=== PATIENT | female | born 1940 | race Caucasian/White ===

== ENCOUNTER → 2019-12-31 13:29 | Outpatient (CLI) | payer OTHER, SELFPAY ==
--- NOTE | ~2019-12-31 | MM_ITS ---
EXAMINATION: MM screening [facility] BI w ollie HISTORY: Screening mammogram TECHNIQUE: Craniocaudal and mediolateral oblique 3-D tomosynthesis images were obtained and synthetic 2-D images were generated. CAD analysis was submitted and interpreted. COMPARISON: 12/14/2018, 11/14/2017, 11/03/2016 BREAST PARENCHYMAL COMPOSITION: The breasts are heterogeneously dense, which may obscure small masses . FINDINGS: RIGHT BREAST: There is no evidence of suspicious mass, calcification, or architectural distortion to suggest malignancy. There has been no significant interval change. LEFT BREAST: There is a possible mass in the posterior third of the outer breast best appreciated 9 c m from the nipple on the craniocaudal view.. IMPRESSION: 1. Possible left breast mass. 2. Additional mammographic views and possible breast ultrasound are recommended. BI-RADS Category 0: Incomplete: Needs additional imaging evaluation. Reviewed, dictated and finalized at location A. REPAIRER IMPRESSION: 1. Possible left breast mass. 2. Additional mammographic views and possible breast ultrasound are recommended . BI-RADS Category 0: Incomplete: Needs additional imaging evaluation.
== END ==
PROVIDERS: PCP Family Medicine; Visit Provider Obstetrics & Gynecology
DX: Z12.31 Encounter for screening mammogram for malignant neoplasm of breast (principal); R92.8 Other abnormal and inconclusive findings on diagnostic imaging of breast
CPT/HCPCS: 77063; 77067

== ENCOUNTER → 2020-01-20 09:16 | Outpatient (CLI) | payer OTHER, SELFPAY ==
--- NOTE | ~2020-01-20 | MMUS_ITS ---
EXAMINATION: MM diagnostic mammo unilat LT, US breast LT limited HISTORY: Follow-up left breast asymmetry TECHNIQUE: Additional 3-D tomosynthesis images of the left breast were performed and synthetic 2-D im ages were generated. CAD analysis was submitted and interpreted. High resolution left breast ultrasou nd was performed. COMPARISON: Comparison to multiple prior studies sequentially, with oldest reviewed study dated 06/2016. FINDINGS: MAMMOGRAPHIC FINDINGS: The breasts are heterogenously dense, which may obscure small masses. There is persistent focal asymm etry in the upper outer quadrant of the left breast, although a discrete mass is not identified. No s uspicious calcifications or architectural distortion. ULTRASOUND: At 12-1:00, 5 cm from the nipple, there is an irregular shaped hypoechoic mass measuring 7 x 4 mm wit h irregular margins. No internal vascularity or significant posterior features. IMPRESSION: 1. Irregular shaped 7 mm mass at 12-1:00, 5 cm from the nipple. 2. Recommend ultrasound-guided left breast biopsy. BI-RADS category 4, suspicious findings. Reviewed, dictated and finalized at location A. HALMIC AIDE IMPRESSION: 1. Irregular shaped 7 mm mass at 12-1:00, 5 cm from the nipple. 2. Recommend ultrasound-guided left breast biopsy. BI-RADS category 4, suspicious findings.
== END ==
PROVIDERS: PCP Family Medicine; Visit Provider Obstetrics & Gynecology
DX: N63.0 Unspecified lump in unspecified breast (principal); R92.8 Other abnormal and inconclusive findings on diagnostic imaging of breast
CPT/HCPCS: 76642; 77065

== ENCOUNTER 2022-02-16 00:55 | Day surgery (SDC) | payer OTHER, SELFPAY ==
[2022-02-03 13:17] VITALS: BMI 29.4
--- NOTE | 2022-02-15 17:11 | WPDGICN ---
Assessment and Plan Assessment and plan (1) Colon cancer screening: Code(s): Z12.11 - Encounter for screening for malignant neoplasm of colon Status: Acute Assessment and Plan: Colonoscopy with possible biopsy or polypectomy or cautery or injection of substances. (2) Polyp, colonic: Code(s): K63.5 - Polyp of colon Status: Acute GI Consult Note Consult date/time: 02/15/22 17:11 HPI: Yenni Mattson is a 81 year old female referred for investigation because of a prior removal of a tubular adenoma. That was in 2018 she has had no recent change in bowel habits or blood in her stools . Review of Systems Review of Systems: All systems reviewed & are unremarkable except as noted in HPI and below PMFSH Past Medical History Medical History Allergic rhinitis Mixed hyperlipidemia Osteoporosis Family History Family History Grandparent Diabetes mellitus Hypertension Family history of cardiovascular disease Father Family history of glaucoma Family history of malignant melanoma Mother Hypertension Social History Social History Smoking status: Never smoker Second hand tobacco smoke exposure: No Alcohol intake: never Substance use type: does not use Living arrangements: with family Spiritual care concerns: No Meds Home Medications and Allergies Home Medications Medication Instructions Recorded Confirmed Type atorvastatin 10 mg tablet 10 mg PO DAILY #90 tablet 10/28/21 02/03/22 Rx fluticasone propionate 50 2 spray INTRANASAL DAILY #3 device 10/28/21 02/03/22 Rx mcg/actuation nasal spray,suspension calcium carbonate-vitamin D3 1 tablet PO DAILY 02/03/22 02/03/22 History multivit with min-folic acid 1 tablet PO DAILY 02/03/22 02/03/22 History Allergies Allergy/AdvReac Type Severity Reaction Status Date / Time No Known Allergies Allergy Verified 02/16/22 06:51 Exam Resp: Auscultation: clear to auscultation bilaterally Cardio: Rate: regular rate Rhythm: regular rhythm GI: GI Palp: Yes Soft to palpation and No Tenderness to palpation present (GI)
[2022-02-16 06:52] VITALS: BP 142/80; PULSE 82; RESP 20; TEMP 36.3; O2SAT 98; BMI 28.8
[2022-02-16] MEDS: LACTATED RINGERS 1,000 ML 150 ML IV CONT (07:04)
--- NOTE | 2022-02-16 07:06 | WPDANESEPPF ---
Anes - Initial Pre Proc Eval Procedure: Operation Date: 02/16/22 08:00 Proposed Procedures p Screening Colonoscopy - Min Schreiber MD Date/Time: 02/16/22 07:06 Surgeon: Min Schreiber MD Pre Op Diagnosis: hx of colon polyps Patient Data Age: 81 Gender: F Height: 1.57 m Weight: 71.4 kg Last Vital Signs Temp 36.3 C L 02/16/22 06:52 Pulse 82 02/16/22 06:52 Resp 20 02/16/22 06:52 BP 142/80 H 02/16/22 06:52 Pulse Ox 98 02/16/22 06:52 Allergies Allergy/AdvReac Type Severity Reaction Status Date / Time No Known Allergies Allergy Verified 02/16/22 06:51 Home Medications Medication Instructions Recorded Confirmed Type atorvastatin 10 mg tablet 10 mg PO DAILY #90 tablet 10/28/21 02/03/22 Rx fluticasone propionate 50 2 spray INTRANASAL DAILY #3 device 10/28/21 02/03/22 Rx mcg/actuation nasal spray,suspension calcium carbonate-vitamin D3 [All 1 tablet PO DAILY 02/03/22 02/03/22 History Day Calcium] multivit with min-folic acid 1 tablet PO DAILY 02/03/22 02/03/22 History [Adult One Daily Multivitamin] Patient hx anesthesia problems: none Family hx anesthesia problems: none Results Review: All pre-operative results and documents have been reviewed as part of the pre-operative evaluation. [facility] Past Medical History Medical History Allergic rhinitis Mixed hyperlipidemia Osteoporosis Family History Family History Grandparent Diabetes mellitus Hypertension Family history of cardiovascular disease Father Family history of glaucoma Family history of malignant melanoma Mother Hypertension Social History Social History Smoking status: Never smoker Second hand tobacco smoke exposure: No Alcohol intake: never Substance use type: does not use Living arrangements: with family Spiritual care concerns: No Anes - Eval Final PreProcedure Day of Procedure 02/16/22 07:06 Patient weight: overweight Heart: regular rate and rhythm Lungs: clear to auscultation Airway: Mallampati scale class II Neurological: alert and oriented Last oral intake: >/= 8 hours ASA classification: II Emergent: no Anesthetic plan: proceed Anesthesia type and monitoring: general GIVS and standard monitoring Results Review: All pre-operative results and documents have been reviewed as part of the pre-operative evaluation. Informed Consent: The patient's anesthetic plan and its attendant risks and benefits were discussed with the patient/family/POA. Questions were solicited and answers provided to the satisfaction of the patient/family/POA.
[2022-02-16 08:11] VITALS: BP 133/67; PULSE 78; RESP 20; O2SAT 97
[2022-02-16 08:21] VITALS: BP 107/60; PULSE 68; RESP 18; O2SAT 97
[2022-02-16 08:31] VITALS: BP 144/73; PULSE 64; RESP 20; O2SAT 100
== END 2022-02-16 08:44 | disposition home or self-care (01) ==
PROVIDERS: PCP Family Medicine; Visit Provider Internal Medicine Gastroenterology
PROC: 0DJD8ZZ Inspection of Lower Intestinal Tract, Via Natural or Artificial Opening Endoscopic (ICD-10-PCS; CPT 45378; principal; 2022-02-16 08:00)
DX: Z12.11 Encounter for screening for malignant neoplasm of colon (principal); D12.4 Benign neoplasm of descending colon; E78.2 Mixed hyperlipidemia; M81.0 Age-related osteoporosis without current pathological fracture
CPT/HCPCS: 45385; 88305; J2704; J7120

== ENCOUNTER → 2022-03-07 11:46 | Outpatient (CLI) | payer OTHER, SELFPAY ==
--- NOTE | ~2022-03-07 | DEXA_ITS ---
Bone Density Report Name: MARIMAR DICKEY Age: 81 Sex: Female Ethnicity: White Date of : 1940 Indication: osteopenia; parental hip fracture; height loss; prior fracture; hysterectomy; postmenopausal Referring Provider: Hodan Fung Study: Bone densitometry was performed. Exam Date: March 07, 2022 Accession number: [id number] Bone Density: Region BMD T-score Z-score Classification AP Spine (L1-L4) 0.821 -2.1 0.6 Osteopenia Femoral Neck (Left) 0.613 -2.1 0.2 Osteopenia Total Hip (Left) 0.776 -1.4 0.7 Osteopenia Femoral Neck (Right) 0.559 -2.6 -0.3 Osteoporosis Total Hip (Right) 0.738 -1.7 0.4 Osteopenia Total Hip Mean 0.757 -1.6 0.6 Osteopenia World Health Organization criteria for BMD impression classify patients as: Normal (T-score at or above -1.0), Osteopenia (T-score between -1.0 and -2.5), or Osteoporosis (T-score at or below -2.5). 10-year Fracture Risk: FRAX not reported because: Some T-score for Spine Total or Hip Total or Femoral Neck at or below -2.5 Previous Exams: Region Exam Age BMD T-score BMD Change BMD Change Date g/cm2 vs Baseline vs Previous AP Spine(L1-L4) 03/07/2022 81 0.821 -2.1 0.030* 0.008 12/14/2018 78 0.812 -2.1 0.022 0.022 11/03/2016 76 0.790 -2.3 Total Hip(Left) 03/07/2022 81 0.776 -1.4 0.029* 0.010 12/14/2018 78 0.766 -1.4 0.019 0.019 11/03/2016 76 0.747 -1.6 Total Hip(Right) 03/07/2022 81 0.738 -1.7 0.002 -0.018 12/14/2018 78 0.756 -1.5 0.020 0.020 11/03/2016 76 0.736 -1.7 *Denotes significance at 95% confidence level, LSC for AP Spine = 0.022 g/cm2, LSC for Total Hip = 0.027 g/cm2 Clinical Information Provided by Patient: Has had a low trauma fracture Parent has had a hip fracture Has used the following medications: Vitamin D, Calcium Has the following medical conditions: Hysterectomy Patient maximum height was 62 Menopause Age: 46 Drinks caffeinated beverages Onset of menses at age 17 Number of children 2 Impression: The patient has established osteoporosis, based on the Right Femoral Neck T-score and the existence of a prior fracture. The patient has risk factors, including: parental hip fracture, previous fracture. No significant bone loss was observed. Discussion: HIGH RISK OF FRACTURE. BONE DENSITY IS UNDESIRABLY LOW AT ONE OR MORE SKELETAL SITES,
== END ==
PROVIDERS: PCP Family Medicine; Visit Provider Physician Assistant
DX: Z78.0 Asymptomatic menopausal state (principal); M85.89 Other specified disorders of bone density and structure, multiple sites; M81.0 Age-related osteoporosis without current pathological fracture
CPT/HCPCS: 77080

== ENCOUNTER → 2023-09-25 11:03 | Outpatient (CLI) | payer OTHER, SELFPAY ==
--- NOTE | ~2023-09-25 | XR_ITS ---
XR foot LT min 3V DATE: 09/25/2023 11:26 INDICATION: Left foot pain TECHNIQUE: 4 views COMPARISON: None FINDINGS: There is diffuse osteopenia. Mild plantar calcaneal enthesopathy. 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 No fracture or dislocation, periosteal reaction or bone destruction. IMPRESSION: Mild plantar calcaneal enthesopathy. Mild to moderate osteoarthritic change at the first metatarsophalangeal joint Reviewed, dictated and finalized at location B.
== END ==
PROVIDERS: PCP Physician Assistant Medical; Visit Provider Physician Assistant Medical
DX: M77.32 Calcaneal spur, left foot (principal); M19.072 Primary osteoarthritis, left ankle and foot
CPT/HCPCS: 73630

== ENCOUNTER 2024-09-17 13:56 | Outpatient (CLI) | payer OTHER, SELFPAY ==
--- NOTE | ~2024-09-17 | MM_ITS ---
EXAMINATION: MM screening [facility] BI w ollie HISTORY: Screening TECHNIQUE: Craniocaudal and mediolateral oblique 3-D tomosynthesis images were obtained and synthetic 2-D images were generated. CAD analysis was submitted and interpreted. COMPARISON: Comparison to multiple prior studies sequentially, with oldest reviewed study dated 02/2020. BREAST PARENCHYMAL COMPOSITION: Dense: The breasts are heterogeneously dense, which may obscure small masses FINDINGS: There is no evidence of suspicious mass, calcification, or architectural distortion to sugg est malignancy in either breast. There has been no suspicious interval change. IMPRESSION: 1. No mammographic evidence of malignancy. 2. Recommend routine screening mammography in one year. BI-RADS Category 1: Negative Reviewed, dictated and finalized at location B.
== END 2024-09-17 13:57 | disposition home or self-care (01) ==
LOC: MICIMG 13:57
PROVIDERS: PCP Family Medicine; Visit Provider Family Medicine
DX: Z12.31 Encounter for screening mammogram for malignant neoplasm of breast (principal)
CPT/HCPCS: 77063; 77067

== ENCOUNTER 2024-12-07 09:35 | Outpatient (CLI) | payer OTHER, SELFPAY ==
--- NOTE | ~2024-12-07 | DEXA_ITS ---
Bone Density Report Name: MARIMAR DICKEY Age: 84 Sex: Female Ethnicity: White Date of : 1940 Indication: postmenopausal; screening for osteoporosis; parental hip fracture; height loss; history of glucocorticoids; hysterectomy; Referring Provider: HALEIGH SIMEON Study: Bone densitometry was performed. Exam Date: December 07, 2024 Accession number: [id number] Bone Density: Region BMD T-score Z-score Classification AP Spine(L1-L4) 0.864 -1.7 1.1 Osteopenia Femoral Neck (Left) 0.578 -2.4 0.0 Osteopenia Total Hip (Left) 0.748 -1.6 0.6 Osteopenia Femoral Neck (Right) 0.571 -2.5 -0.1 Osteoporosis Total Hip (Right) 0.763 -1.5 0.7 Osteopenia Total Hip Mean 0.755 -1.6 0.7 Osteopenia World Health Organization criteria for BMD impression classify patients as: Normal (T-score at or above -1.0), Osteopenia (T-score between -1.0 and -2.5), or Osteoporosis (T-score at or below -2.5). 10-year Fracture Risk: FRAX not reported because: Some T-score for Spine Total or Hip Total or Femoral Neck at or below -2.5 Clinical Information Provided by Patient: Parent has had a hip fracture Has taken Glucocorticoids Has used the following medications: Fosamax (i.e. alendronate), Vitamin D, Calcium Has the following medical conditions: Hysterectomy Patient maximum height was 63 Menopause Age: 42 Drinks caffeinated beverages Onset of menses at age 18 Number of children 2 Impression: The patient has osteoporosis, based on the Right Femoral Neck T-score. The patient has risk factors, including: parental hip fracture, history of glucocorticoid therapy. Discussion: INCREASED RISK OF FRACTURE. BONE DENSITY IS UNDESIRABLY LOW AT ONE OR MORE SKELETAL SITES, CONSISTENT WITH POSTMENOPAUSAL OSTEOPOROSIS. This patient's lowest T-score meets the World Health Organization's (WHO) criteria for osteoporosis at one or more sites (T-score -2.5 or below). In untreated patients, the risk of osteoporotic fracture increases approximately two-fold for each 1.0 SD decrease in T-score. Low bone density is not the only risk factor for fracture; also consider factors such as patient's age, frailty or poor health, risk of falling, risk of injury, previous osteoporotic fracture, family history of osteoporosis, cigarette smoking, low body weight, etc. Not everyone with low bone mineral density has osteoporosis; osteomalacia and other metabolic bone disorders should also be considered. Patients who have osteoporosis should be evaluated for specific diseases and conditions (secondary causes) that may cause or contribute to bone loss. The [place] Association [employer] Clinical Endocrinologists (AACE) and National Osteoporosis Foundation (NOF) recommend pharmacologic intervention for all postmenopausal women whose T-score is in this range. The patient should follow a healthful lifestyle (good nutrition with adequate calcium and vitamin D, and appropriate weight-bearing exercise). Follow-Up: Consider a repeat BMD and Vertebral Fracture Assessment (VFA) exam in 2 years or sooner if medically necessary, to reassess this patient's status. Reported by: REBECA on 12/07/2024 10:16:00 AM. Reviewed, dictated and finalized at location AAissatou DEGROOT
== END 2024-12-07 09:36 | disposition home or self-care (01) ==
PROVIDERS: PCP Family Medicine; Visit Provider Family Medicine
DX: M81.0 Age-related osteoporosis without current pathological fracture (principal); M85.89 Other specified disorders of bone density and structure, multiple sites; Z78.0 Asymptomatic menopausal state
CPT/HCPCS: 77080

== ENCOUNTER 2025-01-31 10:52 | Outpatient (CLI) | payer OTHER, SELFPAY ==
--- NOTE | ~2025-01-31 | XR_ITS ---
3 VIEWS LUMBAR SPINE Ordering provider: Claribel Man PA-C History: . W19.XXXA - Unspecified fall, initial encounter . Comparison: None. FINDINGS: VERTEBRAL BODIES:Compression fracture is seen in L1 which is most likely acute. MRI evaluation advise d. Sclerotic area seen in the sacrum. Follow-up advised. DISK SPACES: Narrowing of the disc L4-L5. SOFT TISSUES: Atherosclerotic changes of the aorta. IMPRESSION: Compression fracture of L1 most likely acute. MRI evaluation advised. Sclerotic area in the left sacrum. Follow-up advised. Reviewed, dictated and finalized at location A. [employer] OPERATIONS SPECIALIST
--- NOTE | ~2025-01-31 | XR_ITS ---
XR hip BI 2V w AP pelvis Ordering provider: Claribel Man PA-C History: . W19.XXXA - Unspecified fall, initial encounter . Comparison: None. FINDINGS: BONES: No acute fracture or dislocation. Sclerotic area seen in the left sacrum. Follow-up advised. HIP JOINT SPACES: Mild to moderate osteoarthritic changes of both hips. SACROILIAC JOINT SPACES/LUMBAR SPINE: The sacroiliac joint spaces are normal. Mild degenerative wilkinson es of the visualized lower lumbar spine. PUBIC SYMPHYSIS: Normal. SOFT TISSUES: Normal. IMPRESSION: No acute osseous abnormality of the bilateral hips and pelvis. Sclerotic lesion seen in the left sacrum most likely benign. Follow-up advised. Reviewed, dictated and finalized at location A. RVISOR MOLD SHOP
== END 2025-01-31 10:53 | disposition home or self-care (01) ==
LOC: MICIMG 10:54
PROVIDERS: PCP Family Medicine; Visit Provider Student in an Organized Health Care Education/Training Program
DX: S32.010A Wedge compression fracture of first lumbar vertebra, initial encounter for closed fracture (principal); M89.8X8 Other specified disorders of bone, other site; W19.XXXA Unspecified fall, initial encounter; X58.XXXA Exposure to other specified factors, initial encounter
CPT/HCPCS: 72100; 73521

== ENCOUNTER 2025-02-03 14:37 | Emergency (ER) | payer OTHER, SELFPAY ==
[2025-02-03] VITALS (13 sets, daily range): BP systolic 145–188; BP diastolic 69–116; PULSE 68–76; RESP 18–20; TEMP 36.3; O2SAT 96–99
--- NOTE | ~2025-02-03 | CT_ITS ---
EXAMINATION: CT abdomen pelvis w con DATE: 02/03/2025 19:05 INDICATION: abd pain, constipation, lumbar spine fracture TECHNIQUE: Computed tomography (CT) of the abdomen and pelvis was performed with 100 mL Omnipaque-350 intravenous contrast. Automated exposure control and iterative reconstruction technique were employe d. The dose-length product was 636.50 mGy-cm. COMPARISON: X-ray lumbar spine 01/31/2025. FINDINGS: Lower thorax: Coronary artery calcifications. Liver: Right lobe hemangioma. Multiple subcentimeter hypodensities that are too small to characterize but most likely represent cysts or hemangiomas. Biliary/Gallbladder: Gallbladder is normal. No bile duct dilation. Pancreas: No mass or duct dilation. Spleen: Normal. Adrenals:No mass. Kidneys: No suspicious mass, obstructing stone, or hydronephrosis. Subcentimeter left renal hypodensi ties, too small to characterize but most likely represent cysts. Small left upper pole AML. GI tract: Mild distal esophageal and gastric wall edema. No small or large bowel dilation. Moderate v olume of intracolonic feces. Appendix not confidently visualized. Mesentery/Peritoneum: No ascites, mass, or free air. Retroperitoneum: No mass. Atherosclerotic calcifications of intra-abdominal arterial vessels. Pelvis: Normal urinary bladder. Absent uterus. Normal bilateral ovaries. Soft Tissues: Small uncomplicated fat-containing of local hernia. Bones: No acute osseous finding. Moderate burst fracture at L1 with 6 mm retropulsion. Left sacral b one island. IMPRESSION: Mild esophagitis/gastritis. Moderate volume of colonic feces. No CT findings of large or small bowel obstruction. Grossly stable moderate L1 burst fracture with 6 mm retropulsion. Reviewed, dictated and finalized at location K. IMPRESSION: Mild esophagitis/gastritis. Moderate volume of colonic feces. No CT findings of large or small bowel obstru ction. Grossly stable moderate L1 burst fracture with 6 mm retropulsion.
--- NOTE | 2025-02-03 14:56 | ED.GENADULT ---
HPI - General Adult General Chief complaint: Unspecified <Jeri Cueto PA-C - Last Filed: 02/04/25 09:29> Stated complaint: Constipation Last BM 01/30-sent by Dr Jewell <Jeri Cueto PA-C - Last Filed: 02/04/25 09:29> Time Seen by Provider: 02/03/25 14:55 <Jeri Cueto PA-C - Last Filed: 02/04/25 09:29> Source: patient <Jeri Cueto PA-C - Last Filed: 02/04/25 09:29> Mode of arrival: ambulatory <Jeri Cueto PA-C - Last Filed: 02/04/25 09:29> Limitations: no limitations <Jeri Cueto PA-C - Last Filed: 02/04/25 09:29> History of Present Illness HPI narrative: This is a 84 year old female that presents to the ER for constipation. Reports she slipped and fell 4 days ago. She landed on her bottom. She sustained a compression fracture after this. Reports she has not been able to have a bowel movement. Sent to the ER for further evaluation by her PCP. Denies fevers, vomiting, dysuria. <Jeri Cueto PA-C - Last Filed: 02/04/25 09:29> Related Data Home medications: Home Medications ?Medication ?Instructions ?Recorded ?Confirmed ?Last Taken ?Type calcium carb-vitamin D3 ER 600 mg 1 tablet PO DAILY 02/03/22 11/12/24 02/15/22 History (1,500 mg)-500 unit tablet,ER 24 hr multivitamin with minerals-folic 1 tablet PO DAILY 02/03/22 11/12/24 02/15/22 History acid 0.4 mg tablet cholecalciferol (vitamin D3) 25 25 mcg PO DAILY 06/26/24 11/12/24 Unknown History mcg (1,000 unit) capsule <Jeri Cueto PA-C - Last Filed: 02/04/25 09:29> Allergies/adverse reactions: Allergies Allergy/AdvReac Type Severity Reaction Status Date / Time No Known Allergies Allergy Verified 02/03/25 14:40 <Jeri Cueto PA-C - Last Filed: 02/04/25 09:29> Review of Systems Review of Systems: CONSTITUTIONAL: Denies fever GASTROINTESTINAL: Reports abdominal pain. Denies nausea, vomiting, or diarrhea. GENITOURINARY: Denies dysuria or hematuria. <Jeri Cueto PA-C - Last Filed: 02/04/25 09:29> All systems reviewed & are unremarkable except as noted in HPI and below <Jeri Cueto PA-C - Last Filed: 02/04/25 09:29> PMFSH Past Medical History Medical History: Medical History (Updated 02/04/25 @ 09:29 by Jeri Cueto PA-C) Fall Osteoporosis Allergic rhinitis Mixed hyperlipidemia <Jeri Cueto PA-C - Last Filed: 02/04/25 09:29> Family History Family History: Family History Grandparent Diabetes mellitus Hypertension Family history of cardiovascular disease Father Family history of glaucoma Family history of malignant melanoma Mother Hypertension Sibling Breast cancer <Jeri Cueto PA-C - Last Filed: 02/04/25 09:29> Social History Social History: Social History Smoking status: Never smoker Second hand tobacco smoke exposure: No Alcohol intake: never Substance use: never Substance use type: does not use Lack of Transportation: No Lack of Food: Never True Current Housing: I Have Housing Concerned About Future Housing: No Difficulty Paying Gas/Electric Bills: No Difficulty Paying for Meds: No Currently Unemployed: No Education: Master's Degree or Higher Difficulty w/ Childcare or Family Care: No Living arrangements: with family Occupation/Education: retired Gender identity (if verbalized by the patient): Female Sexual Orientation (if Verbalized by the Patient): Straight or Heterosexual Spiritual care concerns: No Agree to blood products: Yes <Jeri Cueto PA-C - Last Filed: 02/04/25 09:29> Exam Narrative: GENERAL: Well-appearing, well-nourished, and in no acute distress. HEAD: Normocephalic, atraumatic. EYES: EOMI. CHEST: Clear to auscultation. No respiratory distress. No wheezes rales or rhonchi HEART: Regular rate and rhythm. No murmur heard. Normal peripheral pulses. ABDOMEN: Soft, nontender, nondistended, normal active bowel sounds. EXTREMITIES: Normal range of motion. No edema. SKIN: Warm, dry, no rash. NEURO: No focal deficits. Alert and oriented x3. PSYCH: Normal mood and affect <ZACH Park Last Filed: 02/04/25 09:29> Course Vital Signs Vital signs: Vital Signs Temperature 97.4 F L 02/03/25 14:42 Pulse Rate 76 02/03/25 14:42 Respiratory Rate 20 02/03/25 14:42 Blood Pressure 152/116 H 02/03/25 14:42 Pulse Oximetry 98 02/03/25 14:42 Oxygen Delivery Room Air 02/03/25 14:42 Temperature 97.4 F L 02/03/25 14:42 Pulse Rate 73 02/03/25 18:29 Respiratory Rate 18 02/03/25 18:29 Blood Pressure 188/70 H 02/03/25 18:29 Pulse Oximetry 99 02/03/25 18:29 Oxygen Delivery Room Air 02/03/25 14:42 <ZACH Park Last Filed: 02/04/25 09:29> Vital Signs Temperature 97.4 F L 02/03/25 14:42 Pulse Rate 76 02/03/25 14:42 Respiratory Rate 20 02/03/25 14:42 Blood Pressure 152/116 H 02/03/25 14:42 Pulse Oximetry 98 02/03/25 14:42 Oxygen Delivery Room Air 02/03/25 14:42 Temperature 97.4 F L 02/03/25 14:42 Pulse Rate 73 02/03/25 18:29 Respiratory Rate 18 02/03/25 18:29 Blood Pressure 188/70 H 02/03/25 18:29 Pulse Oximetry 99 02/03/25 18:29 Oxygen Delivery Room Air 02/03/25 14:42 <Analy Islas PA-C - Last Filed: 02/03/25 20:54> Medical Decision Making MDM Narrative Medical decision making narrative: Care signed out to myself at shift change pending CT scan of abd/pelvis. CT showing moderate volume colonic feces. No bowel obstruction. No other concerning findings. Showing mild gastritis. Showing stable compression fracture which patient is aware of. No evidence of cord compression or cauda equina. Discussed imaging findings. Patient states she is ready to go home. Discussed management of constipation including MiraLax and Dulcolax. Recommended close follow-up with PCP for further evaluation. Discussed return precautions. Patient in agreement with plan. Discharged in stable condition. <Analy Islas PA-C - Last Filed: 02/03/25 20:54> Medical Records Medical records reviewed: Yes I reviewed the external patient's medical records. <ZACH Staples Last Filed: 02/03/25 20:54> Vital Signs Vital Signs: Vital Signs Temperature 97.4 F L 02/03/25 14:42 Pulse Rate 76 02/03/25 14:42 Respiratory Rate 20 02/03/25 14:42 Blood Pressure 152/116 H 02/03/25 14:42 Pulse Oximetry 98 02/03/25 14:42 Oxygen Delivery Room Air 02/03/25 14:42 Temperature 97.4 F L 02/03/25 14:42 Pulse Rate 73 02/03/25 18:29 Respiratory Rate 18 02/03/25 18:29 Blood Pressure 188/70 H 02/03/25 18:29 Pulse Oximetry 99 02/03/25 18:29 Oxygen Delivery Room Air 02/03/25 14:42 <Jeri Cueto PA-C - Last Filed: 02/04/25 09:29> Vital Signs Temperature 97.4 F L 02/03/25 14:42 Pulse Rate 76 02/03/25 14:42 Respiratory Rate 20 02/03/25 14:42 Blood Pressure 152/116 H 02/03/25 14:42 Pulse Oximetry 98 02/03/25 14:42 Oxygen Delivery Room Air 02/03/25 14:42 Temperature 97.4 F L 02/03/25 14:42 Pulse Rate 73 02/03/25 18:29 Respiratory Rate 18 02/03/25 18:29 Blood Pressure 188/70 H 02/03/25 18:29 Pulse Oximetry 99 02/03/25 18:29 Oxygen Delivery Room Air 02/03/25 14:42 <ZACH Staples Last Filed: 02/03/25 20:54> Lab Data Lab results reviewed: Yes I reviewed the patient's lab results. <Jeri Cueto PA-C - Last Filed: 02/04/25 09:29> Result diagrams: 02/03/25 15:23 02/03/25 15:23 <Jeri Cueto PA-C - Last Filed: 02/04/25 09:29> Labs: Lab Results 02/03/25 02/03/25 Range/Units 15:23 15:29 WBC 6.2 (4.5-10.0) K/mm3 RBC 4.10 L (4.2-5.4) M/mm3 Hgb 12.7 (12.0-15.0) g/dL Hct 37.6 (37.0-47.0) % MCV 91.7 (80-100) fl MCH 31.0 (26-34) pg MCHC 33.8 (32-36) g/dl RDW 13.7 (11.5-14.5) % Plt Count 271 (150-375) k/mm3 MPV 9.9 (7.4-10.4) fl Immature Gran % (Auto) 0.3 (0-0.5) % Neut % (Auto) 67.9 (45.5-73.1) % Lymph % (Auto) 19.7 (18.3-44.2) % [place] % (Auto) 8.5 (2.6-8.5) % Eos % (Auto) 3.4 (0-4.4) % Baso % (Auto) 0.2 (0.2-1.2) % Lymph # (Auto) 1.23 (0.9-3.2) K/mm3 [place] # (Auto) 0.5 (0.1-0.6) K/mm3 Eos # (Auto) 0.2 (0-0.3) K/mm3 Baso # (Auto) 0.0 (0.0-0.1) K/mm3 Abs Immat Gran (auto) 0.02 (0.00-0.031) K/mm3 Absolute Neuts (auto) 4.2 (1.3-6.7) K/mm3 Absolute Nucleated RBC 0.000 (0.0-0.012) K/mm3 Nucleated RBC % 0.0 (0.0-0.2) % Sodium 140 (137-145) mmol/L Potassium 3.7 (3.4-5.0) mmol/L Chloride 106 (98-107) mmol/L Carbon Dioxide 23 (22-30) mmol/L Anion Gap 11 (4-12) mmol/L BUN 20 H (7-17) mg/dL Creatinine 0.80 (0.7-1.0) mg/dL Estim Creat Clear Calc 43 ml/min Estimated GFR > 60 (59 - ) Glucose 131 H (65-110) mg/dL Calcium 9.6 (8.4-10.2) mg/dL Total Bilirubin 0.7 (0.2-1.3) mg/dL AST 43 H (14-36) U/L ALT 31 (6-35) U/L Alkaline Phosphatase 88 (38-126) U/L Total Protein 7.0 (6.3-8.2) g/dL Albumin 4.2 (3.5-5.1) g/dL Lipase 84 (23-300) U/L Urine Color Dark yellow (Yellow) Urine Appearance Cloudy H (Clear) Urine pH 5.5 (5.0-9.0) Ur Specific [place] 1.031 (1.001-1.035) Urine Protein Trace (Negative) mg/dL Urine Glucose (UA) Negative (Negative) mg/dL Urine Ketones Trace H (Negative) mg/dL Ur Blood (Man) Negative (Negative) Urine Nitrate Negative (Negative) Urine Bilirubin Negative (Negative) Urine Urobilinogen 1.0 (<2.0) mg/dL Leukocyte Esterase Rfl Trace H (Negative) ELISEO/UL Urine RBC 6-10 H (0-2) /hpf Urine WBC 6-10 H (0-3) /hpf Ur Squamous Epith Cells Occasional (Few) /hpf Calcium Oxalate Crystal Present (None) /hpf Urine Bacteria None seen /hpf Urine Casts 0-2 <Jeri Cueto PA-C - Last Filed: 02/04/25 09:29> Lab Results 02/03/25 02/03/25 Range/Units 15:23 15:29 WBC 6.2 (4.5-10.0) K/mm3 RBC 4.10 L (4.2-5.4) M/mm3 Hgb 12.7 (12.0-15.0) g/dL Hct 37.6 (37.0-47.0) % MCV 91.7 (80-100) fl MCH 31.0 (26-34) pg MCHC 33.8 (32-36) g/dl RDW 13.7 (11.5-14.5) % Plt Count 271 (150-375) k/mm3 MPV 9.9 (7.4-10.4) fl Immature Gran % (Auto) 0.3 (0-0.5) % Neut % (Auto) 67.9 (45.5-73.1) % Lymph % (Auto) 19.7 (18.3-44.2) % [place] % (Auto) 8.5 (2.6-8.5) % Eos % (Auto) 3.4 (0-4.4) % Baso % (Auto) 0.2 (0.2-1.2) % Lymph # (Auto) 1.23 (0.9-3.2) K/mm3 [place] # (Auto) 0.5 (0.1-0.6) K/mm3 Eos # (Auto) 0.2 (0-0.3) K/mm3 Baso # (Auto) 0.0 (0.0-0.1) K/mm3 Abs Immat Gran (auto) 0.02 (0.00-0.031) K/mm3 Absolute Neuts (auto) 4.2 (1.3-6.7) K/mm3 Absolute Nucleated RBC 0.000 (0.0-0.012) K/mm3 Nucleated RBC % 0.0 (0.0-0.2) % Sodium 140 (137-145) mmol/L Potassium 3.7 (3.4-5.0) mmol/L Chloride 106 (98-107) mmol/L Carbon Dioxide 23 (22-30) mmol/L Anion Gap 11 (4-12) mmol/L BUN 20 H (7-17) mg/dL Creatinine 0.80 (0.7-1.0) mg/dL Estim Creat Clear Calc 43 ml/min Estimated GFR > 60 (59 - ) Glucose 131 H (65-110) mg/dL Calcium 9.6 (8.4-10.2) mg/dL Total Bilirubin 0.7 (0.2-1.3) mg/dL AST 43 H (14-36) U/L ALT 31 (6-35) U/L Alkaline Phosphatase 88 (38-126) U/L Total Protein 7.0 (6.3-8.2) g/dL Albumin 4.2 (3.5-5.1) g/dL Lipase 84 (23-300) U/L Urine Color Dark yellow (Yellow) Urine Appearance Cloudy H (Clear) Urine pH 5.5 (5.0-9.0) Ur Specific [place] 1.031 (1.001-1.035) Urine Protein Trace (Negative) mg/dL Urine Glucose (UA) Negative (Negative) mg/dL Urine Ketones Trace H (Negative) mg/dL Ur Blood (Man) Negative (Negative) Urine Nitrate Negative (Negative) Urine Bilirubin Negative (Negative) Urine Urobilinogen 1.0 (<2.0) mg/dL Leukocyte Esterase Rfl Trace H (Negative) ELISEO/UL Urine RBC 6-10 H (0-2) /hpf Urine WBC 6-10 H (0-3) /hpf Ur Squamous Epith Cells Occasional (Few) /hpf Calcium Oxalate Crystal Present (None) /hpf Urine Bacteria None seen /hpf Urine Casts 0-2 <ZACH Staples Last Filed: 02/03/25 20:54> Imaging Data Attestation: I personally reviewed and interpreted this imaging study as follows: <Analy Islas PA-C - Last Filed: 02/03/25 20:54> Radiologist's impression: ITS Impressions Abdomen/Pelvis CT 02/03/25 20:06 IMPRESSION: Mild esophagitis/gastritis. Moderate volume of colonic feces. No CT findings of large or small bowel obstruction. Grossly stable moderate L1 burst fracture with 6 mm retropulsion. <ZACH Staples Last Filed: 02/03/25 20:54> Critical Care Time Critical Care Time Critical Care Time: No <ZCAH Park Last Filed: 02/04/25 09:29> Discharge Plan Discharge Clinical Impression: Constipation Qualifiers: Constipation type: unspecified constipation type Qualified Code(s): K59.00 - Constipation, unspecified <Jeri Cueto PA-C - Last Filed: 02/04/25 09:29> Patient Disposition: Home, Self-Care <Jeri Cueto PA-C - Last Filed: 02/04/25 09:29> Condition: Stable <Jeri Cueto PA-C - Last Filed: 02/04/25 09:29> Instructions: Antibiotic Form, Constipation (ED), High Fiber Diet (ED) <Jeri Cueto PA-C - Last Filed: 02/04/25 09:29> Additional Instructions: Recommend MiraLax and dulcolax/colace twice daily as needed over the next several days for constipation. You may decrease this to once per day or every other day if you develop diarrhea. Stay well hydrated. Recommend high-fiber diet. Follow-up closely with your primary care doctor for further evaluation. Return to the ED if you experience worsening or severe abdominal pain, severe constipation, unable to keep down food or drink, persistent vomiting, persistent fevers, severe back pain, numbness in groin or legs, or any other symptoms of concern. <Jeri Cueto PA-C - Last Filed: 02/04/25 09:29> Patient Language: Urdu <Jeri Cueto PA-C - Last Filed: 02/04/25 09:29> Prescriptions: No Action cholecalciferol (vitamin D3) 25 mcg (1,000 unit) capsule 25 mcg PO DAILY atorvastatin 10 mg tablet 10 mg PO DAILY Qty: 90 3RF fluticasone propionate 50 mcg/actuation spray,suspension 2 spray intranasal DAILY Qty: 3 3RF Rx Instructions: administer into each nostril multivit with min-folic acid 0.4 mg Tablet 1 tablet PO DAILY calcium carbonate-vitamin D3 600 mg(1,500mg) -500 unit Tablet Extended Release 24 Hr 1 tablet PO DAILY alendronate 70 mg tablet 70 mg PO WEEKLY Qty: 14 3RF <Jeri Cueto PA-C - Last Filed: 02/04/25 09:29> Follow-up/Referrals: Gaviota Jewell MD [Primary Care Provider] - <Jeir Cueto PA-C - Last Filed: 02/04/25 09:29> Time of Disposition: 20:52 <Jeri Cueto PA-C - Last Filed: 02/04/25 09:29> 20:52 <Analy Islas PA-C - Last Filed: 02/03/25 20:54>
[2025-02-03 15:38] LABS: Basophils Percent Auto 0.2 % (0.2-1.2); Eosinophils Absolute Auto 0.2 K/mm3 (0-0.3); Eosinophils Percent Auto 3.4 % (0-4.4); Hematocrit 37.6 % (37.0-47.0); Hemoglobin 12.7 g/dL (12.0-15.0); Immature Granulocyte Absolute 0.02 K/mm3 (0.00-0.031); Immature Granulocyte Percent A 0.3 % (0-0.5); Lymphocytes Absolute Auto 1.23 K/mm3 (0.9-3.2); Lymphocytes Percent Auto 19.7 % (18.3-44.2); Mean Corpuscular HGB Conc 33.8 g/dl (32-36); Mean Corpuscular Volume 91.7 fl (80-100); Mean Platelet Volume 9.9 fl (7.4-10.4); Monocytes Absolute Auto 0.5 K/mm3 (0.1-0.6); Monocytes Percent Auto 8.5 % (2.6-8.5); Neutrophils Absolute Auto 4.2 K/mm3 (1.3-6.7); Neutrophils Percent Auto 67.9 % (45.5-73.1); Platelet Count Result 271 k/mm3 (150-375); Red Cell Distribution Width 13.7 % (11.5-14.5); White Blood Count 6.2 K/mm3 (4.5-10.0)
[2025-02-03 15:42] LABS: Alanine Aminotransferase 31 U/L (6-35); Albumin Level 4.2 g/dL (3.5-5.1); Alkaline Phosphatase 88 U/L (38-126); Anion Gap 11 mmol/L (4-12); Aspartate Amino Transferase 43 U/L (14-36); Bilirubin,Total 0.7 mg/dL (0.2-1.3); Blood Urea Nitrogen 20 mg/dL (7-17); Calcium 9.6 mg/dL (8.4-10.2); Carbon Dioxide 23 mmol/L (22-30); Chloride 106 mmol/L (98-107); Estimated CRCL calculation 43 ml/min; Estimated Glomerular Filt Rate > 60; Glucose 131 mg/dL (65-110); Lipase 84 U/L (23-300); Potassium 3.7 mmol/L (3.4-5.0); Sodium 140 mmol/L (137-145)
[2025-02-03 15:56] LABS: Add Urine Microscopic? YES; Appearance Urine Cloudy (Clear); Bacteria Urine None Seen /hpf; Bilirubin Urine Negative (Negative); Blood Urine Negative (Negative); Calcium Oxalate Crystals Urine Present /hpf; Color Urine Dark Yellow (Yellow); Glucose Urine UA Negative (Negative); Ketones Urine Trace mg/dL (Negative); Leukocyte Esterase Ur Trace LEU/UL (Negative); Nitrate Urine Negative (Negative); Non Pathogenic Casts 0-2; Protein Urine Trace mg/dL (Negative); Specific Grav Ur 1.031 (1.001-1.035); Squamous Epithelial Cell Urine Occasional /hpf (Few); pH Urine 5.5 (5.0-9.0)
--- OUTSIDE RECORDS SUMMARY | 2025-02-03 17:05 | XMS_ITS | Encounter Summary ---
Author Organization [facility] Address [address] [place] [address] Care Team Providers Care Universal Branch Consultant Name Role Phone Alberto Quinones MD Primary Care Provider + Encounter Details Date Type Department Care Team (Latest Contact Info) Description 06/26/2001 Outpatient Historical [facility] Hernandez, Bob Solorzano MD NO ADDRESS ON FILE Other screening mammogram (Primary Dx) Social History Tobacco Use Types Packs/Day Years Used Date Smoking Tobacco: Never Assessed Comments Unknown Sex and Gender Information Value Date Recorded Sex Assigned at Not on file Legal Sex Female 2:53 AM RESPIRATORY COORDINATOR Gender Identity Not on file Sexual Orientation Not on file documented as of this encounter Plan of Treatment Not on file documented as of this encounter Visit Diagnoses Diagnosis Other screening mammogram- Primary documented in this encounter Care Teams Universal Branch Consultant Relationship Specialty Start Date End Date Alberto Quinones MD PCP - General Internal Medicine 08/09/12 documented as of this encounter
--- OUTSIDE RECORDS SUMMARY | 2025-02-03 17:06 | XMS_ITS | Patient Health Summary ---
Author Organization [facility] Address [address] [place] [address] Care Team Providers Care School Director Name Role Phone Alberto Quinones MD Primary Care Provider [phone] [facility],non-owned Affiliates and Associated Physician Practices is amultiple site organization consisting of ambulatory clinics and hospital sitesin [place] and [place]. This disclosure is being madepursuant to the Care Everywhere program and may not contain all information available regarding this patient. Last updated 18.[facility] [employer] Allergies No known active allergies Medications Be aware that medications may not be up to date on this document. Always verify current medications with the patient. No known medications Active Problems No known active problems Immunizations * INFLUENZA VACCINE, HIGH-DOSE, QUADR. (FLUZONE HIGH-DOSE QUADRIVALENT; 65Y+), 0.7 ML (HD-IIV4)(Given 2021, 08/10/2020, 09/05/2019, 09/28/2017, 09/28/2016) * INFLUENZA VACCINE, QUADR. (FLUZONE; FLULAVAL; FLUARIX; AFLURIA QUADRIVALENT; 6MO+), 0.5 ML (IIV4)(Given 09/10/2018) Social History Tobacco Use Types Packs/Day Years Used Date Smoking Tobacco: Never Assessed Sex and Gender Information Value Date Recorded Sex Assigned at Not on file Gender Identity Not on file Sexual Orientation Not on file Care Teams School Director Relationship Specialty Start Date End Date Alberto Quinones MD [address] [place] [address] PCP - General Internal Medicine 09/28/16
--- OUTSIDE RECORDS SUMMARY | 2025-02-03 17:06 | XMS_ITS | Continuity of Care Document ---
Author Organization [employer] [facility] [place] Address [address] [facility] lance Garcia [address] [place] [phone] Phone Care Team Providers Care Rn Ambulatory Name Role Phone [facility] Unavailable Unavail able Chrissy Gerard Unavailable Unavailable Procedures Procedure Date Vision Svcs Frames Purchases Progressive Lens, Polycarb Oct- Medical Tax Eye Exam & Treatment Oct- Refraction Oct- Office/outpatient Visit, Est Office/outpatient Visit, Est Aug- Refraction Oct- Office/outpatient Visit, Est Office/outpatient Visit, Est Progressive Lens Per Lens Tint Plastic, Non-Shabnam Tax - Medical TF Polycarb Sphcyl [place] To +/-4d .12-2d Tint Plastic, Non-Shabnam Polycarb [...] Diagnoses Date Provider Providers Copied on Encounter [facility], [address] [place] [address] [address], [place], [place], [address], [place] tel:[phone] [facility] No Information Oct-2 6-201 0 [facility] . [address] [facility], [address], [place], [place], [address], [place]. tel:[phone] Referring Provider: Kat Gaming, [address], [place], [address]. tel:[phone] bahena Provider: Chrissy Gerard, [address] [facility] [address], [place], [address]. tel:[phone] 5706 [facility], [address] [place] [address] [address], [place], [place], [address], [place] tel:[phone] [facility] No Information Aug-1 9-201 0 Jalyn Stephens. [address] , [address], [place], [address], [place]. tel:[phone] Office/outpat ient Visit, [facility], [address] [place] [address] [address], [place], [place], [address], [place] tel:[phone] [facility] No Information Feb- 3-201 0 Jalyn Brito [address] , [address], [place], [address], [place]. tel:[phone] Office/outpat ient Visit, [facility], [address] [place] [address] [address], [place], [place], [address], [place] tel:[phone] [facility] No Information Oct-1 3-200 9 Jalyn Brito [address] , [address], [place], [address], [place]. tel:[phone] Office/outpat ient Visit, [facility], [address], [place], [place], [address], [place] tel:[phone] [facility] No Information Apr-0 7-200 9 Jalyn Stephens. [address], [address], [place], [address], [place]. tel:[phone] Office/outpat ient Visit, [facility], [address], [place], [place], [address], [place] tel:[phone] [facility] No Information Oct-0 7-200 8 Jalyn Stephens. [address], [address], [place], [address], [place]. tel:[phone] [facility], [address] [place] [address] [address], [place], [place], [address], [place] tel:[phone] [facility] No Information Apr-0 4-200 8 [facility] . [address] [facility], [address], [place], [place], [address], [place]. tel:[phone] Consulting Provider: Chrissy Gerard, [address] [place] [address], [place], [address]. tel:[phone] [facility], [address] [place] [address] [address], [place], [place], [address], [place] tel:[phone] [facility] No Information Apr-0 4-200 8 Toshia OD Tyson. [address] [facility], [place], [place], [address], [place]. tel:[phone] Referring Provider: Kat Gaming, [address], [place], [address]. tel:[phone] g Provider: Chrissy Gerard, [address] [place] [address], [place], [address]. tel:[phone] [facility], [address] [place] [address] [address], [place], [place], [address], [place] tel:[phone] [facility] No Information Apr-0 4-200 8 Jalyn Stephens. [address] , [address], [place], [facility], [place]. tel:[phone] [facility], [address], [place], [place], [address], [place] tel:[phone] [facility] No Information Mar-1 3-200 8 Jalyn ToddnAissatou [address] , [address], [place], [facility], [place]. tel:[phone] [facility], [address] [place] [address] [address], [place], [place], [address], [place] tel:[phone] [facility] No Information Mar-0 6-200 8 Jalyn Brito [address] , [address], [place], [facility], [place]. tel:[phone] [facility], [address], [place], [place], [address], [place] tel:[phone] [facility] No Information Mar-0 5-200 8 Jalyn Brito [address] , [address], [place], [facility], [place]. tel:[phone] [facility], [address], [place], [place], [address], [place] tel:[phone] [facility] No Information Feb-1 9-200 8 Jalyn Stephens. [address] , [address], [place], [facility], [place]. tel:[phone] Referring Provider: Kat Gaming, [address], [place], [facility]. tel:[phone] [facility], [address] [place] [address] [address], [place], [place], [address], [place] tel:[phone] [facility] No Information Sep-2 5-200 7 Jalyn Toddn. [address] , [address], [place], [facility], . tel:[phone] [facility], [address], [place], [place], [address], [place] tel:[phone] [facility] No Information Sep-0 6-200 7 Espinal OD Agusto. [address] , [address], [place], [facility], [place]. tel:[phone] [facility], [address] [place] [address] [address], [place], [place], [address], tel:[phone] [facility] No Information Sep-0 5-200 7 Jalyn Toddn. [address] , [address], [place], [facility], [place]. tel:[phone] Office/outpat ient Visit, [facility], [address], [place], [place], [address], [place] tel:[phone] [facility] No Information Aug-3 1-200 7 Gunderson Kat. [address] , [address], [place], [facility], [place]. tel:[phone] Office/outpat ient Visit, [facility], [address] [place] [address] [address], [place], [place], [address], [place] tel:[phone] [facility] [place] No Information Mumtaz-2 8-200 7 Jalyn Toddn. [address] , [address], [place], [facility], [place]. tel:[phone] Office/outpat ient Visit, [facility], [address], [place], [place], [address], [place] tel:[phone] [facility] No Information Apr-1 9-200 7 Jalyn Stephens. [address] [facility] , [address], [place], [address], [place]. tel:[phone] [facility], [address], [place], [place], [address], [place] tel:[phone] SEC [facility] No Information Mumtaz-0 7-200 7 Jalyn Stephens. [address] [facility] , [address], [place], [address], [place]. tel:[phone] Office/outpat ient Visit, [facility], [address], [place], [place], [address], [place] tel:[phone] SEC [facility] No Information Apr-0 5-200 7 Urbano Pantoja. [address] [facility], [address], [place], [place], [address], [place]. tel:[phone] Family History Family Member Type Diagnosis Age [...]
--- OUTSIDE RECORDS SUMMARY | 2025-02-03 17:06 | XMS_ITS | Clinical Summary ---
Author Organization [facility] Address [address] [place] [address] Care Team Providers Care Forensic Toxicologist Name Role Phone Gaviota Jewell MD Primary Care Provider [phone] Allergies No known active allergies Medications atorvastatin (LIPITOR) 10 mg tablet 12/02/2019 Active fluticasone propionate (FLONASE) 50 mcg/actuation nasal spray 09/16/2014 Active cetirizine 10 mg capsule Take by mouth Active calcium carbonate/vitam in D3 (CALTRATE WITH VITAMIN D3 ORAL) Take 2 tablets by mouth Active multivitamin capsule Take 1 capsule by mouth daily Active Active Problems Problem Noted Date Diagnosed Date Abnormal mammography 02/10/2020 Surgical History Surgery Date Site/Laterality Comments HYSTERECTOMY partial CATARACT EXTRACTION KNEE SURGERY BREAST BIOPSY 02/19/2020 Left BREAST BIOPSY 02/19/2020 Left Family History Medical History Relation Name Comments Melanoma Father Relation Name Status Comments Father Social History Tobacco Use Types Packs/Day Years Used Date Smoking Tobacco: Never Smokeless Tobacco: Never Alcohol Use Standard Drinks/Week Comments Never 0 (1 standard drink = 0.6 oz pur e alcohol) AUDIT-C Answer Date Recorded Q1: How often do you have a drink containing alc ohol? 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 Gender Identity Not on file Sexual Orientation Not on file Obstetrics History Last Filed Vital Signs Vital Sign Reading Time Taken Comments Blood Pressure - - Pulse - - Temperature - - Respiratory Rate - - Oxygen Saturation - - Inhaled Oxygen Concentration - - Weight 72.6 kg (160 lb) 02/07/2020 10:07 AM CDT Height 154.9 cm (5' 1 ) 02/07/2020 10:07 AM CDT Body Mass Index 30.23 02/07/2020 10:07 AM CDT Plan of Treatment Health Maintenance Due Date Last Done Comments Depression Screening 1942 Fall Risk Assessment 1942 Osteoporosis Screening-Bone Density Scan 1942 DTaP/Tdap/Td Vaccine (1 - Tdap) 1953 Hepatitis B Screening 1960 Zoster Vaccine (1 of 2) 1992 Well Visit 65+ 2007 Pneumococcal vaccine 65+ (2 of 2 - PPSV23) 09/16/2020 09/16/2019, 09/01/2008 Influenza Vaccine (#1) 2024 9, 09/10/2018, 09/28/2017, Additional history exists Insurance [facility] [id number] [facility] [id number] Care Teams Forensic Toxicologist Relationship Specialty Start Date End Date Gaviota Jewell MD PCP - General Family Medicine 01/22/20
--- OUTSIDE RECORDS SUMMARY | 2025-02-03 17:06 | XMS_ITS | Referral Summary ---
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 Gender Identity Not on file Sexual Orientation Not on file Last Filed Vital Signs Vital Sign Reading Time Taken Comments Blood Pressure - - Pulse - - Temperature - - Respiratory Rate - - Oxygen Saturation - - Inhaled Oxygen Concentration - - Weight 72.6 kg (160 lb) 02/07/2020 10:07 AM CDT Height 154.9 cm (5' 1 ) 02/07/2020 10:07 AM CDT Body Mass Index 30.23 02/07/2020 10:07 AM CDT Plan of Treatment Not on file Insurance [facility] [id number] of [employer] H[employer]/PPO Address: [place] [address] [facility] [id number] Care Teams Video Conference Specialist Relationship Specialty Start Date End Date Gaviota Jewell MD PCP - General Family Medicine 01/22/20
--- OUTSIDE RECORDS SUMMARY | 2025-02-03 17:06 | XMS_ITS | Clinical Summary ---
Author Organization [facility] Address [address] [place] [address] Phone Care Team Providers Care Rd Mechanical Engineer Name Role Phone Alberto Quinones MD Primary Care Provider + Allergies No known active allergies Medications CALCIUM CARBONATE (CALCIUM 500 ORAL) Take by mouth. Active CETIRIZINE HCL (ZYRTEC ORAL) Take by mouth. Active MULTIVITAMINS WITH FLUORIDE (MULTI-VITAMIN ORAL) Take by mouth. Active fluticasone (FLONASE) 50 mcg/spray [place], Suspension 09/16/2014 Active atorvastatin (LIPITOR) 10 mg tablet 09/03/2015 Active Active Problems No known active problems Family History Medical History Relation Name Comments Cancer Father Healthy Maternal Grandfather Healthy Maternal Grandmother Heart Disease Paternal Grandfather Healthy Paternal Grandmother Relation Name Status Comments Brother Alive Father Maternal Grandfather Maternal Grandmother Mother Alive Paternal Grandfather Paternal Grandmother Sister 1 Alive Sister 2 Alive Sister 3 Alive Sister 4 Alive Son 1 Alive Son 2 Alive Social History Tobacco Use Types Packs/Day Years Used Date Smoking Tobacco: Never Smokeless Tobacco: Never Alcohol Use Standard Drinks/Week Comments No 0 (1 standard drink = 0.6 oz pur e alcohol) Comments No Sex and Gender Information Value Date Recorded Sex Assigned at Not on file Legal Sex Female 2:53 AM DRY WALL SPRAYER Gender Identity Not on file Sexual Orientation Not on file Occupation Industry Job Start Date Job End Date Not on file Not on file Not on file Not on file Last Filed Vital Signs Vital Sign Reading Time Taken Comments Blood Pressure 100/70 10/06/2015 11:31 AM DRY WALL SPRAYER Pulse - - Temperature - - Respiratory Rate - - Oxygen Saturation - - Inhaled Oxygen Concentration - - Weight 68.9 kg (152 lb) 10/06/2015 11:31 AM DRY WALL SPRAYER Height 154.9 cm (5' 1 ) 10/06/2015 11:31 AM DRY WALL SPRAYER Body Mass Index 28.72 10/06/2015 11:31 AM DRY WALL SPRAYER Plan of Treatment Health Maintenance Due Date Last Done Comments DTAP/TDAP/TD VACCINES (1 - Tdap) 1961 PNEUMOCOCCAL VACCINE 50+ YEA RS (1 of 1 - PCV) 1992 ZOSTER VACCINE (1 of 2) 1992 RSV VACCINE (60+ or ) (1 - 1-dose 75+ series) 2017 INFLUENZA VACCINE (#1) 2024 COLORECTAL SCREENING Discontinued 12/11/2009 Colorectal Cancer Screening Discontinued OSTEOPOROSIS SCREENING Completed 09/19/2013, 2009 FIT-DNA Q 3 years Discontinued FIT/FOBT Q 1 year Discontinued Flex Sig/CT Colonography Q 5 years Discontinued Procedures Procedure Name Priority Date/Time Associated Diagnosis Comments XR DEXA BONE DENSITY AXIAL 1 OR MORE SITES Routine 09/19/2013 Other ovarian failure from Last 3 Months or Most Recently Relevant to Health Maintenance Results * (ABNORMAL) XR DEXA BONE DENSITY AXIAL 1 OR MORE SITES (09/19/2013) T-SCORE FEMUR (LEFT) [facility] T-SCORE FEMUR (RIGHT) [facility] T-SCORE FEMUR -1.0(A) >=-0.99 [facility] T-SCORE SPINE -1.7(A) >=-0.99 [facility] T-SCORE HIP (LEFT) [facility] T-SCORE HIP (RIGHT) [facility] T-SCORE HIP >=-0.99 [facility] Anatomical Region Laterality Modality Other 09/19/2013 us Bob Hernandez MD DIAGNOSTIC IMAGING ORDERAB LES Final Result from Last 3 Months or Most Recently Relevant to Health Maintenance Insurance [employer] Care Teams Rd Mechanical Engineer Relationship Specialty Start Date End Date Alberto Quinones MD PCP - General Internal Medicine 08/09/12
--- OUTSIDE RECORDS SUMMARY | 2025-02-03 17:06 | XMS_ITS | Referral Summary ---
Author Organization [facility] [employer] Address [address] [facility] [place] [address] Care Team Providers Care Surveillance Monitor Name Role Phone Alberto Quinones MD Primary Care Provider [phone] Source Comments [facility] [employer],non-owned Affiliates and Associated Physician Practices is amultiple site organization consisting of ambulatory clinics and hospital sitesin [place], [place], [place] and [place]. This disclosure is being madepursuant to the Care Everywhere program and may not contain all information available regarding this patient. Last updated 18.[employer] Allergies No known active allergies Medications Be aware that medications may not be up to date on this document. Always verify current medications with the patient. No known medications Active Problems No known active problems Immunizations Name Administration Dates Next Due INFLUENZA VACCINE, HIGH-DOSE , QUADR. (FLUZONE HIGH-DOSE QUADRIVALENT; 65Y+), 0.7 ML (HD-IIV4) 2021,08/10/2020,09/05/2019, 017,09/28/2016 INFLUENZA VACCINE, QUADR. (F LUZONE; FLULAVAL; FLUARIX; AFLURIA QUADRIVALENT; 6MO+), 0.5 ML (IIV4) 09/10/2018 Social History Tobacco Use Types Packs/Day Years Used Date Smoking Tobacco: Never Assessed Sex and Gender Information Value Date Recorded Sex Assigned at Not on file Gender Identity Not on file Sexual Orientation Not on file Plan of Treatment Not on file Care Teams Surveillance Monitor Relationship Specialty Start Date End Date Alberto Quinones MD [address] [place] [phone] PCP - General Internal Medicine 09/28/16
--- OUTSIDE RECORDS SUMMARY | 2025-02-03 17:06 | XMS_ITS | Clinical Summary ---
Author Organization [facility] [employer] Address [address] [facility] [place] [address] Care Team Providers Care Hull And Deck Remover Name Role Phone Alberto Quinones MD Primary Care Provider [phone] Source Comments [facility] [employer],non-owned Affiliates and Associated Physician Practices is amultiple site organization consisting of ambulatory clinics and hospital sitesin [place], [place], [place] and [place]. This disclosure is being madepursuant to the Care Everywhere program and may not contain all information available regarding this patient. Last updated 18.[employer] Allergies No known active allergies Medications Be [...] Orientation Not on file Plan of Treatment Health Maintenance Due Date Last Done Comments BONE DENSITY TESTING 1942 DTAP/TDAP/TD VACCINES (1 - Tdap) 1961 PNEUMOCOCCAL VACCINE 50+ (1 of 1 - PCV) 1992 ZOSTER VACCINE (1 of 2) 1992 Respiratory Syncytial Virus (RSV) Vaccine Pt: or over 60 yrs (1 - 1-dose 75+ series) 2017 COVID-19 VACCINE (3 - season) 2024 02/16/2021, 01/06/2021 INFLUENZA VACCINE (#1) 2024 , 08/10/2020, 09/05/2019, Additional history exists DEPRESSION SCREENING 11/27/2024 HEPATITIS B VACCINE Aged Out No longe r eligible based on patient's age to complete this topic HIB VACCINE Aged Out No longer eligi ble based on patient's age to complete this topic HPV VACCINE Aged Out No longer eligi ble based on patient's age to complete this topic MENINGOCOCCAL (Group B) VACCINE Aged Out No longer eligible based on patient's age to complete this topic MENINGOCOCCAL VACCINE Aged Out No janay kassandra eligible based on patient's age to complete this topic Care Teams Hull And Deck Remover Relationship Specialty Start Date End Date Alberto Quinones MD [address] [place] [phone] PCP - General Internal Medicine 09/28/16
--- NOTE | 2025-02-03 17:23 | PC.NURSE ---
Patient assisted to bedside commode
--- OUTSIDE RECORDS SUMMARY | 2025-02-03 18:17 | XMS_ITS | Referral Summary ---
Author Organization [facility] [employer] Address [address] [facility] [place] [address] Care Team Providers Care Supervisor Facepiece Line Name Role Phone Alberto Quinones MD Primary Care Provider [phone] Source Comments [facility] [employer],non-owned Affiliates and Associated Physician Practices is amultiple site organization consisting of ambulatory clinics and hospital sitesin [place], [place], [place] and [place]. This disclosure is being madepursuant to the Care Everywhere program and may not contain all information available regarding this patient. Last updated 18.[employer] Allergies No known active allergies Medications Be [...] of Treatment Not on file Care Teams Supervisor Facepiece Line Relationship Specialty Start Date End Date Alberto Quinones MD [address] [place] [phone] PCP - General Internal Medicine 09/28/16
--- OUTSIDE RECORDS SUMMARY | 2025-02-03 18:17 | XMS_ITS | Patient Health Summary ---
Author Organization [facility] Address [address] [place] [address] Care Team Providers Care Digital Sales Planner Name Role Phone Alberto Quinones MD Primary Care Provider Note from [facility],non-owned Affiliates and Associated Physician Practices is amultiple site organization consisting of ambulatory clinics and hospital sitesin [place], [place], [place] and [place]. This disclosure is being madepursuant to the Care Everywhere program and may not contain all information available regarding this patient. Last updated 18.[facility] [employer] Allergies No known active allergies Medications Be [...] Sexual Orientation Not on file Care Teams Digital Sales Planner Relationship Specialty Start Date End Date Alberto Quinones MD [address] [place] [address] PCP - General Internal Medicine 09/28/16
--- OUTSIDE RECORDS SUMMARY | 2025-02-03 18:17 | XMS_ITS | Clinical Summary ---
Author Organization [facility] [employer] Address [address] [facility] [place] [address] Care Team Providers Care Radial Drill Press Operator Name Role Phone Alberto Quinones MD Primary Care Provider [phone] Source Comments [facility] [employer],non-owned Affiliates and Associated Physician Practices is amultiple site organization consisting of ambulatory clinics and hospital sitesin [place], [place], [place] and [place]. This disclosure is being madepursuant to the Care Everywhere program and may not contain all information available regarding this patient. Last updated 18.[employer] Allergies No known active allergies Medications Be [...] age to complete this topic Care Teams Radial Drill Press Operator Relationship Specialty Start Date End Date Alberto Quinones MD [address] [place] [phone] PCP - General Internal Medicine 09/28/16
--- OUTSIDE RECORDS SUMMARY | 2025-02-03 18:17 | XMS_ITS | Referral Summary ---
Author Organization [facility] Address [address] [place] [address] Care Team Providers Care Cookie Breaker Name Role Phone Gaviota Jewell MD Primary Care Provider [phone] Allergies No known active allergies Medications atorvastatin [...] on file Legal Sex Female 12:03 AM HOOK UP Gender Identity Not on file Sexual Orientation [...] Plan of Treatment Not on file Insurance [facility] [id number] [facility] [id number] Care Teams Cookie Breaker Relationship Specialty Start Date End Date Gaviota Jewell MD PCP - General Family Medicine 01/22/20
--- OUTSIDE RECORDS SUMMARY | 2025-02-03 18:17 | XMS_ITS | Clinical Summary ---
Author Organization [facility] Address [address] [facility] [place] [address] Phone Care Team Providers Care Metal Products Fabricator Assembler Name Role Phone Alberto Quinones MD Primary Care Provider + Allergies No known active allergies Medications CALCIUM CARBONATE (CALCIUM 500 ORAL) Take by mouth. Active CETIRIZINE HCL (ZYRTEC ORAL) Take by mouth. Active MULTIVITAMINS WITH FLUORIDE (MULTI-VITAMIN ORAL) Take by mouth. Active fluticasone (FLONASE) 50 mcg/spray [place], Suspension 09/16/2014 Active atorvastatin (LIPITOR) 10 mg [...] on file Legal Sex Female 2:53 AM INSURANCE COMPLIANCE ANALYST Gender Identity Not on file Sexual Orientation Not on file Occupation Industry Job Start Date Job End Date Not on file Not on file Not on file Not on file Last Filed Vital Signs Vital Sign Reading Time Taken Comments Blood Pressure 100/70 10/06/2015 11:31 AM INSURANCE COMPLIANCE ANALYST Pulse - - Temperature - - Respiratory Rate - - Oxygen Saturation - - Inhaled Oxygen Concentration - - Weight 68.9 kg (152 lb) 10/06/2015 11:31 AM INSURANCE COMPLIANCE ANALYST Height 154.9 cm (5' 1 ) 10/06/2015 11:31 AM INSURANCE COMPLIANCE ANALYST Body Mass Index 28.72 10/06/2015 11:31 AM INSURANCE COMPLIANCE ANALYST Plan of Treatment Health Maintenance Due Date [...] Most Recently Relevant to Health Maintenance Insurance [employer] OPEN ACCESS Care Teams Metal Products Fabricator Assembler Relationship Specialty Start Date End Date Alberto Quinones MD PCP - General Internal Medicine 08/09/12
--- OUTSIDE RECORDS SUMMARY | 2025-02-03 18:17 | XMS_ITS | Clinical Summary ---
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 [facility] [id number] Care Teams Center Customer Service Associate Relationship Specialty Start Date End Date Gaviota Jewell MD PCP - General Family Medicine 01/22/20
--- OUTSIDE RECORDS SUMMARY | 2025-02-03 18:17 | XMS_ITS | Continuity of Care Document ---
Author Organization [facility] Address [address] [facility] lance Garcia [address] [place] [address] Phone Care Team Providers Care Auto Dealership Porter Name Role Phone [facility] Unavailable Unavail able Chrissy Gerard Unavailable Unavailable Procedures Procedure Date Vision Svcs Frames Purchases Progressive Lens, Polycarb Oct- Medical Tax Eye Exam & Treatment Oct- Refraction Oct- Office/outpatient Visit, Est Office/outpatient Visit, Est Aug- Refraction Oct- Office/outpatient Visit, Est Office/outpatient Visit, Est Progressive Lens Per Lens Tint Plastic, Non-Shabnam Tax - Medical TF Polycarb Sphcyl [place] To +/-4d .12-2d Tint Plastic, Non-Shabnam Polycarb [...] Diagnoses Date Provider Providers Copied on Encounter [facility], [address] [place] [address] [address], [place], [place], [id number], [place] tel:[phone] [facility] No Information Oct-2 6-201 0 Optical Shop [facility] . [address] [facility] [facility] [facility], [address], [place], [place], [address], [place]. tel:[phone] Referring Provider: Kat Gaming, [address], [place], [address]. tel:[phone] bahena Provider: Chrissy Gerard, [address] [facility], [place], [address]. tel:[phone] 4523 [facility], [address] [place] [address] [address], [place], [place], [address], [place] tel:[phone] [facility] No Information Aug-1 9-201 0 Jalyn Stephens. [address] , [address], [place], [address], [place]. tel:[phone] Office/outpat ient Visit, [facility], [address] [place] [address] [address], [place], [place], [id number], [place] tel:[phone] [facility] No Information Feb- 3-201 0 Jalyn Brito [address] , [address], [place], [address], [place]. tel:[phone] Office/outpat ient Visit, [facility], [address] [place] [address] [address], [place], [place], [address], [place] tel:[phone] [facility] No Information Oct-1 3-200 9 Jalyn Brito [address] , [address], [place], [address], [place]. tel:[phone] Office/outpat ient Visit, [facility], [address] [address], [place], [place], [address], [place] tel:[phone] [facility] No Information Apr-0 7-200 9 Jalyn Stephens. [address], [address], [place], [address], [place]. tel:[phone] Office/outpat ient Visit, [facility] [facility], [address], [place], [place], [address], [place] tel:[phone] [facility] No Information Oct-0 7-200 8 Jalyn Stephens. [address], [address], [place], [address], [place]. tel:[phone] [facility], [address] [place] [address] [address], [place], [place], [address], [place] tel:[phone] [facility] No Information Apr-0 4-200 8 Optical Shop [facility] . [address] [facility], [address], [place], [place], [address], [place]. tel:[phone] Consulting Provider: Chrissy Gerard, [address] [place] [address], [place], [address]. tel:[phone] 9918 [facility], [address] [place] [address] [address], [place], [place], [address], [place] tel:[phone] [facility] No Information Apr-0 4-200 8 Toshia OD Tyson. [address] [facility], [place], [place], [address], [place]. tel:[phone] Referring Provider: Kat Gaming, [address], [place], [address]. tel:[phone] g Provider: Chrissy Gerard, [address] [place] [address], [place], [address]. tel:[phone] [facility], [address] [place] [address] [address], [place], [place], [address], [place] tel:[phone] [facility] No Information Apr-0 4-200 8 Jalyn Stephens. [address] , [address], [place], [facility], [place]. tel:[phone] [facility], [address] [address], [place], [place], [address], [place] tel:[phone] SEC [facility] [address] No Information Mar-1 3-200 8 Jalyn ToddnAissatou [address] , [address], [place], [facility], [place]. tel:[phone] [facility], [address] [place] [address] [address], [place], [place], [address], [place] tel:[phone] SEC [facility] [place] No Information Mar-0 6-200 8 Jalyn Brito [address] , [address], [place], [facility], [place]. tel:[phone] [facility], [address] [address], [place], [place], [address], [place] tel:[phone] [facility] No Information Mar-0 5-200 8 Jalyn Brito [address] , [address], [place], [facility], [place]. tel:[phone] [facility], [address] [address], [place], [place], [address], [place] tel:[phone] [facility] No Information Feb-1 9-200 8 Jalyn Stephens. [address] , [address], [place], [facility], [place]. tel:[phone] Referring Provider: Kat Gaming, [address], [place], [facility]. tel:[phone] [facility], [address] [place] [address] [address], [place], [place], [address], [place] tel:[phone] [facility] No Information Sep-2 5-200 7 Jalyn Toddn. [address] , [address], [place], [facility], . tel:[phone] [facility], [address] [address], [place], [place], [address], [place] tel:[phone] [facility] No Information Sep-0 6-200 7 Espinal OD Agusto. [address] , [address], [place], [facility], [place]. tel:[phone] [facility], [address] [place] [address] [address], [place], [place], [address], tel:[phone] [facility] No Information Sep-0 5-200 7 Jalyn Toddn. [address] , [address], [place], [facility], [place]. tel:[phone] Office/outpat ient Visit, [facility], [address] [place] [address], [place], [place], [address], [place] tel:[phone] [facility] No Information Aug-3 1-200 7 Gunderson Kat. [address] , [address], [place], [facility], [place]. tel:[phone] Office/outpat ient Visit, [facility], [address] [place] [address] [address], [place], [place], [address], [place] tel:[phone] SEC [facility] [place] No Information Mumtaz-2 8-200 7 Jalyn Toddn. [address] , [address], [place], [facility], [place]. tel:[phone] Office/outpat ient Visit, [facility], [address] [address], [place], [place], [address], [place] tel:[phone] [facility] No Information Apr-1 9-200 7 Jalyn Stephens. [address] [facility] , [address], [place], [address], [place]. tel:[phone] [facility], [address] [address], [place], [place], [address], [place] tel:[phone] [address] [facility] No Information Mumtaz-0 7-200 7 Jalyn Stephens. [address] [facility] [facility] , [address], [place], [address], [place]. tel:[phone] Office/outpat ient Visit, [facility], [address] [address], [place], [place], [address], [place] tel:[phone] SEC [facility] No Information Apr-0 5-200 7 Urbano Pantoja. [address] [facility], [address], [place], [place], [address], [place]. tel:[phone] Family History Family Member Type Diagnosis Age At Onset No Information Payers Payer name Insurance type Covered green party ID Authoriza tion(s) No Information Social [...]
--- OUTSIDE RECORDS SUMMARY | 2025-02-03 18:17 | XMS_ITS | Encounter Summary ---
Author Organization [facility] Address 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
== END 2025-02-03 21:10 | disposition home or self-care (01) ==
PROVIDERS: Emergency Provider Physician Assistant; PCP Family Medicine
DX: K59.00 Constipation, unspecified (principal); E78.2 Mixed hyperlipidemia; M81.0 Age-related osteoporosis without current pathological fracture; S32.011D Stable burst fracture of first lumbar vertebra, subsequent encounter for fracture with routine healing; K20.90 Esophagitis, unspecified without bleeding; K29.70 Gastritis, unspecified, without bleeding; Z79.899 Other long term (current) drug therapy; W01.0XXD Fall on same level from slipping, tripping and stumbling without subsequent striking against object, subsequent encounter
CPT/HCPCS: 36415; 74177; 80053; 81001; 83690; 85025; 87086; 99284; Q9967

== ENCOUNTER 2025-09-06 17:16 | Emergency (ER) | payer OTHER, SELFPAY ==
--- OUTSIDE RECORDS SUMMARY | 2010-09-20 19:00 | XMS_ITS | Continuity of Care Document ---
Author Organization [facility] [place] [address] [facility] lance Garcia [address] [place] [phone] Phone Care Team Providers Care Backup Sawyer Name Role Phone [facility] Unavailable Unavail able Chrissy Gerard Unavailable Unavailable Procedures Procedure Date Vision Svcs Frames Purchases Progressive Lens, Polycarb Oct- Medical Tax Eye Exam & Treatment Oct- Refraction Oct- Office/outpatient Visit, Est Office/outpatient Visit, Est Aug- Refraction Oct- Office/outpatient Visit, Est Office/outpatient Visit, Est Progressive Lens Per Lens Tint Plastic, Non-Shabnam Tax - Medical TF Polycarb Sphcyl [place] To +/-4d .12-2d Tint Plastic, Non-Shabnam Polycarb Lens Per Lens Tax - Medical Post-op Follow-up Visit Post-op Follow-up Visit Post-op Follow-up Visit Remove Cataract, Insert Lens Eye Exam Established Pt IOLMaster Post-op Follow-up Visit Post-op Follow-up Visit Revision Of Iris Office/outpatient Visit, Est Office/outpatient Visit, Est Office/outpatient Visit, Est Eye Exam Established Pt Office/outpatient Visit, Est Advance Directives Directive Yes / No Effective Date File Name No Information Encounters Encounter Description Practice Location Reason(s) For Visit Diagnoses Date Provider Providers Copied on Encounter [facility], [address] [place] [address] [address], [place], [place], [id number], [place] tel:[phone] [facility] No Information Oct-2 6-201 0 [facility] . [address] [facility], [address], [place], [place], [address], [place]. tel:[phone] Referring Provider: Kat Gaming, [address], [place], [address]. tel:[phone] bahena Provider: Chrissy Gerard, [address] [facility], [place], [address]. tel:[phone] [facility], [address] [place] [address] [address], [place], [place], [address], [place] tel:[phone] [facility] No Information Aug-1 9-201 0 Jalyn Stephens. [address] , [address], [place], [address], [place]. tel:[phone] [place] [facility] [place] [address] [place] [address] [address], [place], [place], [address], [place] tel:[phone] [facility] No Information Feb- 3-201 0 Jalyn Brito [address] , [address], [place], [address], [place]. tel:[phone] [place]pat ient [place] [facility] [place] [address] [place] [address] [address], [place], [place], [address], [place] tel:[phone] [facility] No Information Oct-1 3-200 9 Jalyn Brito [address] , [address], [place], [address], [place]. tel:[phone] Office/outpat ient Visit, [facility], [address], [place], [place], [address], [place] tel:[phone] [facility] No Information Apr-0 7-200 9 Jalyn Stephens. [address], [address], [place], [address], [place]. tel:[phone] Office/outpat ient Visit, [facility], [address], [place], [place], [address], [place] tel:[phone] [facility] No Information Oct-0 7-200 8 Jalyn Stephens. [address], [address], [place], [address], [place]. tel:[phone] [facility], [address] [place] [address] [address], [place], [place], [address], [place] tel:[phone] [facility] No Information Apr-0 4-200 8 [facility] . [address] [facility], [address], [place], [place], [address], [place]. tel:[phone] Consulting Provider: Chrissy Gerard, [address] [place] [address], [place], [address]. tel:[phone] [facility], [address] [place] [address] [address], [place], [place], [address], [place] tel:[phone] [facility] No Information Apr-0 4-200 8 Toshia OD Tyson. [address] [facility], [place], [place], [address], [place]. tel:[phone] Referring Provider: Kat Gaming, [address], [place], [address]. tel:[phone] g Provider: Chrissy Gerard, [address] [place] [address], [place], [address]. tel:[phone] [facility], [address] [place] [address] [address], [place], [place], [address], [place] tel:[phone] [facility] No Information Apr-0 4-200 8 Jalyn Stephens. [address] , [address], [place], [facility], [place]. tel:[phone] [facility] Eye [facility], [address], [place], [place], [address], [place] tel:[phone] SEC [facility] [address] No Information Mar-1 3-200 8 Jalyn ToddnAissatou [address] , [address], [place], [facility], [place]. tel:[phone] [facility], [address] [place] [address] [address], [place], [place], [address], [place] tel:[phone] [facility] No Information Mar-0 6-200 8 Jalyn Brito [address] , [address], [place], [facility], [place]. tel:[phone] [facility] Eye [facility], [address], [place], [place], [address], [place] tel:[phone] [facility] No Information Mar-0 5-200 8 Jalyn Brito [address] , [address], [place], [facility], [place]. tel:[phone] [facility], [address], [place], [place], [address], [place] tel:[phone] [facility] No Information Feb-1 9-200 8 Jalyn Stephens. [address] , [address], [place], [facility], [place]. tel:[phone] Referring Provider: Kat Gaming, [address], [place], [facility]. tel:[phone] [facility], [address] [place] [address] [address], [place], [place], [address], [place] tel:[phone] [facility] No Information Sep-2 5-200 7 Jalyn Toddn. [address] , [address], [place], [facility], . tel:[phone] [facility], [address], [place], [place], [address], [place] tel:[phone] [facility] No Information Sep-0 6-200 7 Espinal OD Agusto. [address] , [address], [place], [facility], [place]. tel:[phone] [facility] Eye [facility], [address] [place] [address] [address], [place], [place], [address], tel:[phone] [facility] No Information Sep-0 5-200 7 Jalyn Toddn. [address] , [address], [place], [facility], [place]. tel:[phone] Office/outpat ient Visit, [facility] Eye [facility], [address], [place], [place], [address], [place] tel:[phone] [facility] No Information Aug-3 1-200 7 Gunderson Kat. [address] , [address], [place], [facility], [place]. tel:[phone] Office/outpat ient Visit, [facility] Eye [facility], [address] [place] [address] [address], [place], [place], [address], [place] tel:[phone] SEC [facility] Corporate [place] No Information Mumtaz-2 8-200 7 Jalyn Toddn. [address] , [address], [place], [facility], [place]. tel:[phone] Office/outpat ient Visit, [facility] Eye [facility], [address], [place], [place], [address], [place] tel:[phone] [facility] No Information Apr-1 9-200 7 Jalyn Stephens. [address] [facility] , [address], [place], [address], [place]. tel:[phone] [facility], [address], [place], [place], [address], [place] tel:[phone] SEC [facility] No Information Mumtaz-0 7-200 7 Jalyn Stephens. [address] [facility] , [address], [place], [address], [place]. tel:[phone] Office/outpat ient Visit, [facility] [place] [address], [place], [place], [address], [place] tel:[phone] SEC [facility] No Information Apr-0 5-200 7 Urbano Pantoja. [address] [facility], [address], [place], [place], [address], [place]. tel:[phone] Family History Family Member Type Diagnosis Age At Onset No Information Payers Payer name Insurance type Covered constitution party ID Authoriza tion(s) No Information Social History Type Description Quantity Date Captured Comments Sex Female Smoking Status No Information Chief Complaint And Reason For Visit No Information Reason For Referral Reason For Referral No Information History Of Present Illness Encounter Date Complaint History Of Prese nt Illness No Information Functional Status Date Functional Assessmen t No Information Instructions Date Instruction Additional Infor mation No Information Assessments Type Assessment Date No Information Patient Care Teams Name Effective Dates (start - stop) Status Members No Information
--- NOTE | ~2025-09-06 | XR_ITS ---
EXAMINATION: XR knee LT min 4V, 09/06/2025 17:35 CDT HISTORY: Lt knee pain started today, patella surgery 10yrs ago COMPARISON: No comparisons available. Findings: No acute fracture or malalignment. Moderate tricompartmental degenerative changes Soft tissues unremarkable. Impression: No acute fracture or malalignment. Reviewed, dictated and finalized at location P. Impression: No acute fracture or malalignment.
--- OUTSIDE RECORDS SUMMARY | 2025-09-06 17:18 | XMS_ITS | Encounter Summary ---
Author Organization [facility] Address 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
--- OUTSIDE RECORDS SUMMARY | 2025-09-06 17:18 | XMS_ITS | Clinical Summary ---
Author Organization [facility] Address [address] [place] [address] Care Team Providers Care Cleaning Technician Name Role Phone Alberto Quinones MD Primary Care Provider [phone] [facility] and Associated [facility] Practices is amultiple site organization consisting of ambulatory clinics and hospital sitesin [place], [place], [place] and [place]. This disclosure is being madepursuant to the Care Everywhere program and may not contain all information available regarding this patient. Last updated 18.[facility] Allergies No known active allergies Medications * Be aware that medications may not be up to date on this document. Alwaysverify current medications with the patient. No known medications Active Problems No known active problems Immunizations Immunization Administration Dates Next Due INFLUENZA VACCINE, HIGH-DOSE , QUADR. (FLUZONE HIGH-DOSE QUADRIVALENT; 65Y+), 0.7 ML (HD-IIV4) 2021,08/10/2020,09/05/2019,2016,09/28/2016 INFLUENZA VACCINE, QUADR. (F LUZONE; FLULAVAL; FLUARIX; AFLURIA QUADRIVALENT; 6MO+), 0.5 ML (IIV4) 09/10/2018 Social History Tobacco Use Types Packs/Day Years Used Date Smoking Tobacco: Never Assessed Comments Unknown Sex and Gender Information Value Date Recorded Sex Assigned at Not on file Legal Sex Female 2:31 PM CDT Gender Identity Not on file Sexual Orientation Not on file Plan of Treatment Health Maintenance Due Date Last Done Comments BONE DENSITY TESTING 1942 DTAP/TDAP/TD VACCINES (1 - Tdap) 1961 PNEUMOCOCCAL VACCINE 50+ (1 of 1 - PCV) 1992 ZOSTER VACCINE (1 of 2) 1992 Respiratory Syncytial Virus (RSV) Vaccine Pt: or over 60 yrs (1 - 1-dose 75+ series) 2017 DEPRESSION SCREENING 11/27/2024 COVID-19 VACCINE (3 - 2024- season) 2025 02/16/2021, 01/06/2021 INFLUENZA VACCINE (#1) 2025 , 08/10/2020, 09/05/2019, Additional history exists HEPATITIS B VACCINE Aged Out No longe r eligible based on patient's age to complete this topic HIB VACCINE Aged Out No longer eligi ble based on patient's age to complete this topic HPV VACCINE Aged Out No longer eligi ble based on patient's age to complete this topic MENINGOCOCCAL (Group B) VACCINE SHARED DECISION-MAKING Aged Out No longer eligible based on patient's age to complete this topic MENINGOCOCCAL GROUPS A/C/Y/W VACCINE Aged Out No longer eligible based on patient's age to complete this topic Insurance [facility] Care Teams Cleaning Technician Relationship Specialty Start Date [place]ones [place] [address] [place] [address] PCP - General Internal Medicine 09/28/16
--- OUTSIDE RECORDS SUMMARY | 2025-09-06 17:18 | XMS_ITS | Clinical Summary ---
Author Organization [facility] Address [address] [facility] [place] [address] Phone Care Team Providers Care Superintendent Stations Name Role Phone Alberto Quinones MD Primary Care Provider + Allergies No known active allergies Medications CALCIUM CARBONATE (CALCIUM 500 ORAL) Take by mouth. Active CETIRIZINE HCL (ZYRTEC ORAL) Take by mouth. Active MULTIVITAMINS WITH FLUORIDE (MULTI-VITAMIN ORAL) Take by mouth. Active fluticasone (FLONASE) 50 mcg/spray [place], Suspension 09/16/2014 Active atorvastatin (LIPITOR) 10 mg [...] on file Legal Sex Female 2:53 AM TROLLEY COLLECTOR Gender Identity Not on file Sexual Orientation Not on file Occupation Industry Job Start Date Job End Date Not on file Not on file Not on file Not on file Last Filed Vital Signs Vital Sign Reading Time Taken Comments Blood Pressure 100/70 10/06/2015 11:31 AM TROLLEY COLLECTOR Pulse - - Temperature - - Respiratory Rate - - Oxygen Saturation - - Inhaled Oxygen Concentration - - Weight 68.9 kg (152 lb) 10/06/2015 11:31 AM TROLLEY COLLECTOR Height 154.9 cm (5' 1) 10/06/2015 11:31 AM TROLLEY COLLECTOR Body Mass Index 28.72 10/06/2015 11:31 AM TROLLEY COLLECTOR Plan of Treatment Health Maintenance Due Date Last Done Comments DTAP/TDAP/TD VACCINES (1 - Tdap) 1961 PNEUMOCOCCAL VACCINE 50+ YEA RS (1 of 1 - PCV) 1992 ZOSTER VACCINE (1 of 2) 1992 RSV VACCINE (60+ or ) (1 - 1-dose 75+ series) 2017 OSTEOPOROSIS SCREENING 09/19/2018 09/19/2013, 2009 INFLUENZA VACCINE (#1) 2025 COLORECTAL SCREENING Discontinued 12/11/2009 Colorectal Cancer Screening Discontinued FIT-DNA Q 3 years Discontinued FIT/FOBT Q [...] OFFICE CLINIC T-SCORE FEMUR -1.0(A) >=-0.99 PHYSIC [facility] OFFICE CLINIC T-SCORE SPINE -1.7(A) >=-0.99 PHYSIC [place] OFFICE [facility] T-SCORE HIP (LEFT) [facility]IC[facility]ANS OFFICE CLINIC T-SCORE HIP (RIGHT) [facility] OFFICE [facility] T-SCORE HIP >=-0.99 PHYSIC[facility] OFFICE CLINIC Anatomical Region Laterality Modality Other 09/19/2013 us Bob Hernandez MD DIAGNOSTIC IMAGING ORDERAB LES Final Result from Last 3 Months or Most Recently Relevant to Health Maintenance Insurance [employer] OPEN ACCESS Care Teams Superintendent Stations Relationship Specialty Start Date End Date Alberto Quinones MD PCP - General Internal Medicine 08/09/12
--- OUTSIDE RECORDS SUMMARY | 2025-09-06 17:18 | XMS_ITS | Clinical Summary ---
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 Gender Identity Not on file Sexual Orientation Not on file Obstetrics History Last Filed Vital Signs Vital Sign Reading Time Taken Comments Blood Pressure - - Pulse - - Temperature - - Respiratory Rate - - Oxygen Saturation - - Inhaled Oxygen Concentration - - Weight 72.6 kg (160 lb) 02/07/2020 10:07 AM CDT Height 154.9 cm (5' 1) 02/07/2020 10:07 AM CDT Body Mass Index 30.23 02/07/2020 10:07 AM CDT Plan of Treatment Health Maintenance Due Date Last Done Comments Depression Screening 1942 Fall Risk Assessment 1942 Osteoporosis Screening-Bone Density Scan 1942 DTaP/Tdap/Td Vaccine (1 - Tdap) 1953 Hepatitis B Screening 1960 Zoster Vaccine (1 of 2) 1992 Well Visit 65+ 2007 Pneumococcal vaccine 65+ (2 of 2 - PCV20 or PCV21) 09/16/2020 09/16/2019, 09/01/2008 Influenza Vaccine (#1) 2025 9, 09/10/2018, 09/28/2017, Additional history exists Insurance [facility] [id number] [facility] [id number] Care Teams Chemical Handler Relationship Specialty Start Date End Date Gaviota Jewell MD PCP - General Family Medicine 01/22/20
[2025-09-06 17:23] VITALS: BP 123/58; PULSE 74; RESP 16; TEMP 36.8; O2SAT 99
--- NOTE | 2025-09-06 18:16 | ED.EXTPRO ---
HPI - Extremity Problem General Chief complaint: Extremity Problem,Nontraumatic Stated complaint: left knee injury Time Seen by Provider: 09/06/25 17:26 History of Present Illness HPI Narrative: For last few days, patient has had increasing pain to her left knee, today while at a restaurant she almost fell because knee hurt so much. Remote history of patella fracture with repair by Dr. Cortez. Related Data Home Medications ?Medication ?Instructions ?Recorded ?Confirmed ?Last Taken ?Type calcium carb-vitamin D3 ER 600 mg 1 tablet PO DAILY 02/03/22 02/04/25 02/15/22 History (1,500 mg)-500 unit tablet,ER 24 hr multivitamin with minerals-folic 1 tablet PO DAILY 02/03/22 02/04/25 02/15/22 History acid 0.4 mg tablet cholecalciferol (vitamin D3) 25 25 mcg PO DAILY 06/26/24 02/04/25 Unknown History mcg (1,000 unit) capsule Allergies Allergy/AdvReac Type Severity Reaction Status Date / Time No Known Allergies Allergy Verified 09/06/25 17:18 Review of Systems Review of Systems: All systems reviewed & are unremarkable except as noted in HPI and below PMFSH Past Medical History Medical History Lumbar compression fracture Fall Osteoporosis Allergic rhinitis Mixed hyperlipidemia Family History Family History Grandparent Diabetes mellitus Hypertension Family history of cardiovascular disease Father Family history of glaucoma Family history of malignant melanoma Mother Hypertension Sibling Breast cancer Social History Social History Smoking status: Never smoker Second hand tobacco smoke exposure: No Alcohol intake: never Substance use: never Substance use type: does not use Lack of Transportation: No Lack of Food: Never True Current Housing: I Have Housing Concerned About Future Housing: No Difficulty Paying Gas/Electric Bills: No Difficulty Paying for Meds: No Currently Unemployed: No Education: Master's Degree or Higher Difficulty w/ Childcare or Family Care: No Living arrangements: with family Occupation/Education: retired Gender identity (if verbalized by the patient): Female Sexual Orientation (if Verbalized by the Patient): Straight or Heterosexual Spiritual care concerns: No Agree to blood products: Yes Exam Narrative: EXAMINATION OF ORGAN SYSTEMS/BODY AREAS: Constitutional: Vital signs per nursing GENERAL:[No acute distress, non-toxic appearing.] HEAD: Normal with no signs of head trauma. EYES: EOMI, conjunctiva normal ENT: Hearing grossly intact LUNGS: Nonlabored breathing. HEART: [Regular rate and rhythm], strong left DP pulse ABD: [Soft], [nontender to palpation] EXT: Normal range of motion; no obvious effusion or significant tenderness SKIN: [No rashes or lesions or overlying erythema.] NEURO: [Alert and oriented x 3. No gross focal sensory or strength deficits.] PSYCH: Normal affect Course Vital Signs Vital signs: Vital Signs Temperature 98.2 F 09/06/25 17:23 Pulse Rate 74 09/06/25 17:23 Respiratory Rate 16 09/06/25 17:23 Blood Pressure 123/58 L 09/06/25 17:23 Pulse Oximetry 99 09/06/25 17:23 Temperature 98.2 F 09/06/25 17:23 Pulse Rate 74 09/06/25 17:23 Respiratory Rate 16 09/06/25 17:23 Blood Pressure 123/58 L 09/06/25 17:23 Pulse Oximetry 99 09/06/25 17:23 MDM - Extremity (Nontraumatic) MDM Narrative Medical decision making narrative: Patient presenting here with increasing pain to her left knee over last few days, has remote history of surgery to the knee, she is well-appearing here, neurovascularly intact, no obvious deformity, normal painless range of motion without overlying skin changes, x-ray does show arthritis without acute fracture or dislocation Patient agreeable to trialing some steroids, she can take Tylenol for pain, she does have a walker at home and does feel comfortable going home at this time with outpatient management. Will provide follow-up to her old orthopedic surgeon Dr Cortez. Return precautions discussed and provided, Pasha wrap will be applied. Discharge Plan Discharge Clinical Impression: Arthritis of knee Patient Disposition: Home Condition: Stable Instructions: Knee Pain (ED) Additional Instructions: You can take tylenol for pain, try the steroids to help with inflammation, and follow up with orthopedics. You can always return to the ER for any further or worsening issues. Patient Language: French Prescriptions: New prednisone 20 mg tablet 40 mg PO DAILY 4 Days Qty: 8 0RF No Action cholecalciferol (vitamin D3) 25 mcg (1,000 unit) capsule 25 mcg PO DAILY atorvastatin 10 mg tablet 10 mg PO DAILY Qty: 90 3RF fluticasone propionate 50 mcg/actuation spray,suspension 2 spray intranasal DAILY Qty: 3 3RF Rx Instructions: administer into each nostril multivit with min-folic acid 0.4 mg Tablet 1 tablet PO DAILY calcium carbonate-vitamin D3 600 mg(1,500mg) -500 unit Tablet Extended Release 24 Hr 1 tablet PO DAILY alendronate 70 mg tablet 70 mg PO WEEKLY Qty: 14 3RF Follow-up/Referrals: Demian Anton MD [Physician, Orthopedics] - 2 Days Gaviota Jewell MD [Primary Care Provider, Family Practice] Jalen Cortez MD [Physician, Orthopedics] - 2 Days
== END 2025-09-06 18:24 | disposition home or self-care (01) ==
PROVIDERS: Emergency Provider Emergency Medicine; PCP Family Medicine
DX: M17.12 Unilateral primary osteoarthritis, left knee (principal); E78.2 Mixed hyperlipidemia; M81.0 Age-related osteoporosis without current pathological fracture; Z79.899 Other long term (current) drug therapy
CPT/HCPCS: 73564; 99283; J7512

== ENCOUNTER 2025-09-19 12:34 | Outpatient (CLI) | payer OTHER, SELFPAY ==
--- NOTE | ~2025-09-19 | MM_ITS ---
EXAMINATION: MM screening willy BI w ollie HISTORY: Screening TECHNIQUE: Craniocaudal and mediolateral oblique 3-D tomosynthesis images were obtained and synthetic 2-D images were generated. CAD analysis was submitted and interpreted. COMPARISON: Comparison to multiple prior studies sequentially, with oldest reviewed study dated 04/05/2021. BREAST PARENCHYMAL COMPOSITION: Dense: The breasts are heterogeneously dense, which may obscure small masses FINDINGS: There is no evidence of suspicious mass, calcification, or architectural distortion to suggest malignancy in either breast. There has been no suspicious interval change. IMPRESSION: 1. No mammographic evidence of malignancy. 2. Recommend routine screening mammography in one year. BI-RADS Category 1: Negative Reviewed, dictated and finalized at location O.
== END 2025-09-19 12:35 | disposition home or self-care (01) ==
LOC: MICIMG 12:35
PROVIDERS: PCP Student in an Organized Health Care Education/Training Program; Visit Provider Family Medicine
DX: Z12.31 Encounter for screening mammogram for malignant neoplasm of breast (principal)
CPT/HCPCS: 77063; 77067

== ENCOUNTER 2025-10-22 12:30 | Outpatient (RCR) | payer OTHER, SELFPAY ==
--- NOTE | 2025-09-26 11:16 | OPREHPOC ---
Outpatient Therapy Plan of Care This is a Multidisciplinary Plan of Care that may contain components documented by all disciplines (PT, OT, and ST.) PT Problem 1 PT Problem #1 Knowledge Deficit PT Goal 1 Goal / Goal Update 1. Patient to demonstrate independence with HEP for improved self-reliance of symptom management. Target Visit 4 PT Problem 2 PT Problem #2 Pain PT Goal 1 Goal / Goal Update 1. Patient to decrease subjective reports of pain to <2/10 for improved ADL tolerance for 2 consecutive weeks. 2. Pt will increase LEFS score by at least 9 points in order to demonstrate the minimal clinically important difference (MCID) in functional improvement. Target Visit 8 PT Problem 3 PT Problem #3 Impaired Functional Mobility PT Goal 1 Goal / Goal Update 1. Patient to improve gait mechanics and stair negotiation to no noted deficit and reciprocal pattern for improved community navigation. 2. Patient will improve lower extremity strength and functional mobility by reducing Five Times Sit -to-Stand test time from seconds to =15 seconds to demonstrate reduced fall risk and improved transitional movements Target Visit 8 PT Problem 4 PT Problem #4 Impaired Strength PT Goal 1 Goal / Goal Update 1. Patient will demonstrate improved strength of the bilateral hip abductors and extensors to 4/5 on manual muscle testing in order to improve gait stability and stair negotiation. Target Visit 8
--- NOTE | 2025-09-26 11:16 | PTOPEVAL1 ---
Assessment and note entered by Edu Euceda PT Evaluation Information Assessment Status Evaluation Diagnosis L knee pain ICD-10 Condition Codes (PT) Pain in left knee M25.562 Subjective Information Pt reports a few weeks ago when she was out at the restaurant and her knee began to hurt so bad she could not walk. She then went to the ER where they did x rays and prescribe prednisone. Pt has now been seen by the orthopedic MD and x rays just show moderate OA but not bone on bone. They recommended physical therapy and a potential injection. Pt reports increased pain and difficulty stairs, walking on uneven ground and prolonged standing. Pt has a split level home and is currently doing stairs one foot at a time Reported Pain Level Pain Score 0: Self Report Assessment PT Clinical Summary Patient presents to physical therapy with a primary issue of L knee pain for past few weeks with no mechanism of injury. Pt reports pain was once so intense she went to ER. Patient demonstrates LE weakness most henning in glutes, decreased mobility, abnormal posture, gait deficit , and decreased flexibility that limit their ability to perform activities of daily living and functional movements. Patient has signs and symptoms consistent with pes anserine involvement. Patient will benefit from skilled physical therapy to address the above listed deficits and return to prior level of function. Home exercise program instructed and written handout provided, exercises tolerated well with no adverse effects to note post-session. Patient was educated on importance of adherence to home exercise program. Patient was also educated on anatomy, prognosis, home modalities, and plan of care Plan of Care Interventions Hot Pack/Cold Pack,Manual Therapy,Neuro Re- education,Therapeutic Activities,Therapeutic Exercise,Ultrasound,Other PT Services Indicated Yes Treatment Frequency and 2x week 8 visits Duration These treatments will address the objective and functional deficits as defined above. The patient will be advanced safely and appropriately in order for the patient to progress towards his/her prior level of function. Additional exercises will be introduced and as well as a comprehensive home exercise program upon discharge, if needed, ?to ensure carryover of functional gains achieved in the clinic. This treatment plan has been reviewed and agreement upon by the patient.
--- NOTE | 2025-10-22 13:25 | PTOPDC ---
Assessment and note entered by Edu Euceda, PT Evaluation Information Assessment Status Discharge Diagnosis L knee pain ICD-10 Condition Codes (PT) Pain in left knee M25.562 Subjective Information Pt reports overall her symptoms feel about the same. She notes she does have greater ease stair climbing and her pain levels do feel slightly lower but she takes Tylenol regularly which she accredits to the pain relief. She states she returns to ortho on Nov 04 and would like to discharge with an updated HEP and see what they recommend. Reported Pain Level Pain Score 2: Self Report Assessment PT Clinical Summary Pt has improved ROM, but strength deficits persist in the L LE compared to R. She has signs and symptoms consistent to pes anserine related pathology with localized tenderness and swelling in this area. Continued physical therapy recommended but pt would like to discharge and discuss with orthopedic MD before proceeding. Patient to discharge from physical therapy this date and continue with updated home exercise program as instructed. Patient to contact physical therapist or primary care provider if questions or concerns arise. Plan of Care PT Services Indicated No
--- NOTE | 2025-10-22 13:27 | PTOPDC ---
Assessment and note entered by Edu Euceda, PT Evaluation Information Assessment Status Discharge Diagnosis L knee pain ICD-10 Condition Codes (PT) Pain in left knee M25.562 Subjective Information Pt reports overall her symptoms feel about the same. She notes she does have greater ease stair climbing and her pain levels do feel slightly lower but pain levels but she takes Tylenol regularly which she accredits to the pain relief. She states she returns to ortho on Nov 04 and would like to discharge with an updated HEP to see what they recommended Reported Pain Level Pain Score 2: Self Report Assessment PT Clinical Summary Pt has improved ROM, but strength deficits persist in the L LE compared to R. She has signs and symptoms consistent to pes anserine related pathology with localized tenderness and swelling in this area. Continued physical therapy recommended but pt would like to discharge and discuss with orthopedic MD before proceeding. Patient to discharge from physical therapy this date and continue with updated home exercise program as instructed. Patient to contact physical therapist or primary care provider if questions or concerns arise. Plan of Care PT Services Indicated No
== END 2025-10-22 15:00 | disposition home or self-care (01) ==
LOC: ANHGOSHPT 12:30
PROVIDERS: PCP Student in an Organized Health Care Education/Training Program; Visit Provider Nurse Practitioner Family
DX: M25.562 Pain in left knee (principal)
CPT/HCPCS: 97016; 97035; 97110; 97112; 97161; 97530